=== PATIENT | female | born 1935 | race Caucasian/White ===

== ENCOUNTER 2019-05-16 16:33 | Observation (INO) | payer MEDICARE, SELFPAY ==
[2019-05-16] VITALS (11 sets, daily range): BP systolic 137–167; BP diastolic 63–82; PULSE 63–86; RESP 12–20; TEMP 37.6–38.1; O2SAT 92–100
--- NOTE | ~2019-05-16 | XR_ITS ---
EXAMINATION: XR chest 2V DATE: 05/16/2019 19:12 INDICATION: Asthma presenting with shortness of breath, cough and fever. TECHNIQUE: frontal and lateral views of the chest were obtained. COMPARISON: Chest radiograph dated 01/11/2019 FINDINGS: Minimal blunting at the posterior sulci which could represent mild atelectasis and/or tiny bilateral pleural effusions. Normal variant azygos lobe and fissure. Lungs are otherwise clear with no pulmonar y edema or pneumothorax. Cardiomegaly. Unchanged cardiac pacemaker with 2 leads projecting over the e xpected locations of the apex of the right ventricle and overlying the left ventricle likely having t raversed the coronary sinus. Left rotator cuff arthropathy. Moderate thoracic spondylosis. IMPRESSION: 1. Minimal atelectasis and/or tiny pleural effusions at the bilateral posterior sulci. 2. Cardiomegaly. Reviewed, dictated and finalized at location A. NG CATCHER
--- NOTE | 2019-05-16 19:15 | ED.URI ---
HPI - URI/Sore Throat General Chief Complaint: Upper Respiratory Infection Stated Complaint: trying to find placement Time Seen by Provider: 05/16/19 18:39 Source: patient, family (pt's daughter) and RN notes reviewed Mode of arrival: ambulatory Limitations: no limitations History of Present Illness HPI Narrative: Pt is a 84 y/o female with a Hx of COPD, asthma, and pneumonia, who presents to the ED with c/o flu-like symptoms starting several days ago. She notes that she was recently placed in [facility] following an ankle fracture. Pt states that she developed chills 3 days ago and worsening SOB 2 days ago. She notes that she is struggling to take a deep breath due to her chest being congested. Pt also reports chest heaviness, cough, and body aches. She notes that she became nauseas and had one episode of emesis earlier today. Pt's daughter states that the pt has been recently confused, noting that she has been saying strange things. She states that she is unhappy with the rehabilitation facility that her mother is currently at. MD elicited complaint: other (Flu-like symptoms) Pertinent past history: pneumonia, COPD and asthma Onset (ago): day(s) (3) Associated symptoms: chills, cough, shortness of breath, nausea, vomiting and other (chest congestion; chest heaviness; body aches; confusion (per daughter)) Related Data Home Medications Medication Instructions Recorded Confirmed albuterol sulfate 90 mcg/actuation 1 puff INHALATION Q4H PRN 03/05/19 05/17/19 aerosol inhaler atorvastatin 20 mg tablet 20 mg PO HS 03/05/19 05/17/19 bumetanide 1 mg tablet 1 mg PO DAILY 03/05/19 05/17/19 calcium carbonate 600 mg calcium 600 mg PO DAILY 03/05/19 05/17/19 (1,500 mg) tablet omega-3 fatty acids 1,000 mg 1,000 mg PO BID 03/05/19 05/17/19 capsule metformin 500 mg PO BID 03/13/19 05/17/19 potassium chloride [K-Tab] 20 meq PO DAILY 03/13/19 05/17/19 cholecalciferol (vitamin D3) 25 25 mcg PO DAILY 05/02/19 05/17/19 mcg (1,000 unit) capsule nystatin 100,000 unit/gram topical 1 applic TOPICAL BID 05/02/19 05/17/19 cream acetaminophen 650 mg PO Q4-6H PRN 05/17/19 05/17/19 fluticasone propion-salmeterol 1 puff INHALATION Q12H 05/17/19 05/17/19 [Advair Diskus] fluticasone propionate [Flonase 1 spray INTRANASAL BID PRN 05/17/19 05/17/19 Allergy Relief] polysaccharide iron complex 150 mg PO BID 05/17/19 05/17/19 Allergies Allergy/AdvReac Type Severity Reaction Status Date / Time aspirin Allergy Unknown Unknown Verified 05/02/19 10:35 codeine Allergy Unknown Unknown Verified 05/02/19 10:35 Review of Systems Review of Systems: All systems reviewed & are unremarkable except as noted in HPI and below Constitutional: Constitutional: Reports body ache(s) and Reports chills Cardiovascular: Cardiovascular: Reports other (chest heaviness) Respiratory: Respiratory: Reports chest congestion, Reports cough and Reports dyspnea Gastrointestinal: Gastrointestinal: Reports nausea and Reports vomiting Neurologic: Reports confusion (per daughter) [facility] Past Medical History Medical History Afib Arthritis Asthma Cardiac arrhythmia Cataracts, bilateral COPD (chronic obstructive pulmonary disease) DDD (degenerative disc disease) Diabetes mellitus Dyslipidemia Glaucoma Hypertension Pacemaker Pneumonia Polio Rheumatic fever Right arm weakness Stroke Tumor of ovary Surgical History Surgical History History of atrioventricular bala ablation History of cataract surgery History of total bilateral knee replacement Hx of tonsillectomy Social History Social History Social History: Patient lives at home alone and is retired. She designates her youngest daughter Ayanna Centeno as her surrogate decision maker. Her PCP is Dr. Foster. She wishes to be a full code but would not lik
[2019-05-16] MEDS: IPRATROPIUM BR 0.02% INH SOLN 0.5 MG/2.5 ML VIAL INHALATION (19:29)
[2019-05-16] MEDS: ALBUTEROL SULFATE NEB 2.5 MG/0.5 ML INH 5 MG INHALATION (19:29)
--- NOTE | 2019-05-16 19:34 | PC.NURSE ---
pt to bathroom per jay woodruff rn assisted to toilet. pt attempted sample, but sample was compromised. will attempt again later.
[2019-05-16 19:50] LABS: Basophils Percent Auto 0.6 % (0.2-1.2); Hematocrit 37.5 % (37.0-47.0); Hemoglobin 11.8 g/dL (12.0-15.0); Immature Granulocyte Absolute 0.01 K/mm3 (0.00-0.031); Immature Granulocyte Percent A 0.2 % (0-0.5); Lymphocytes Absolute Auto 0.67 K/mm3 (0.9-3.2); Lymphocytes Percent Auto 14.2 % (18.3-44.2); Mean Corpuscular HGB Conc 31.5 g/dl (32-36); Mean Corpuscular Hemoglobin 26.9 pg (26-34); Mean Corpuscular Volume 85.6 fl (80-100); Mean Platelet Volume 12.8 fl (7.4-10.4); Monocytes Absolute Auto 0.5 K/mm3 (0.1-0.6); Monocytes Percent Auto 10.6 % (2.6-8.5); Neutrophils Absolute Auto 3.5 K/mm3 (1.3-6.7); Neutrophils Percent Auto 74.4 % (45.5-73.1); Platelet Count Result 152 k/mm3 (150-375); Red Blood Count 4.38 M/mm3 (4.2-5.4); Red Cell Distribution Width 13.6 % (11.5-14.5); White Blood Count 4.7 K/mm3 (4.5-10.0)
[2019-05-16] MEDS: methylPREDNISolone SOD SUCC 125 MG VIAL IV PUSH (20:43)
[2019-05-16] MEDS: IPRATROPIUM BR 0.02% INH SOLN 0.5 MG/2.5 ML VIAL 1 MG INHALATION (20:44)
[2019-05-16] MEDS: ALBUTEROL SULFATE NEB 2.5 MG/0.5 ML INH 15 MG INHALATION (20:44)
[2019-05-16 20:49] LABS: Blood Urea Nitrogen 18 mg/dL (7-17); Calcium 8.9 mg/dL (8.4-10.2); Carbon Dioxide 30 mmol/L (22-30); Chloride 94 mmol/L (98-107); Estimated CRCL calculation 53 ml/min; Estimated Glomerular Filt Rate > 60; Glucose 105 mg/dL (65-105); Potassium 3.7 mmol/L (3.4-5.0); Sodium 135 mmol/L (137-145)
--- NOTE | 2019-05-16 21:04 | PC.NURSE ---
Spoke with zara genao about update on pt temp of 100.5. ZARA Genao states verbal order for [facility] IVP stat.
[2019-05-16 21:06] LABS: Color Urine Light Yellow (Yellow)
[2019-05-16 21:07] LABS: Appearance Urine Clear (Clear)
[2019-05-16 21:08] LABS: Glucose Urine UA Negative (Negative); Ketones Urine Negative (Negative); Protein Urine Trace mg/dL (Negative); Specific Grav Ur 1.025 (1.001-1.035)
[2019-05-16 21:09] LABS: Bilirubin Urine Negative (Negative); Blood Urine Trace (Negative); Nitrate Urine Negative (Negative); Urobilinogen Urine Normal mg/dL (<2.0)
[2019-05-16 21:10] LABS: Add Urine Microscopic? YES; Leukocyte Esterase Ur Negative LEU/UL (Negative)
[2019-05-16 21:11] LABS: RBC Urine 0-2 /hpf (0-2); WBC Urine 0-3 /hpf (0-3)
[2019-05-16 21:12] LABS: Bacteria Urine Trace /hpf; Squamous Epithelial Cell Urine Few /hpf (Few)
--- NOTE | 2019-05-16 23:49 | PC.NURSE ---
This patient, Marcia Barroso, was admitted to 2 Medical Room 258-. Patient/family oriented to hospital policies and general routines including ID bracelet, bed and alarms, visiting hours, pain management, procedures, bathroom and other care routines, personal items, smoking policy, room service/diet, and visiting hours. Valuables list has been completed. Information on how to activate the Rapid Response Team has been discussed. Patient/Family are encouraged to report perceived risks to care and to ask questions if they do not understand what they are told or what they should do.
[2019-05-17] VITALS (16 sets, daily range): BP systolic 131–143; BP diastolic 53–67; PULSE 64–80; RESP 16–20; TEMP 35.9–36.4; O2SAT 94–98; BMI 35.2
--- NOTE | 2019-05-17 00:07 | PM.IMHP ---
H&P: HPI History of Present Illness Chief complaint: Unhappy with rehab, shortness of breath Narrative: Date and time of patient contact: 05/17/2019 at 3:45 a.m. Marcia Barroso is a 84 year old female with a past medical history of COPD, allergic rhinitis, and diabetes who presented to the ER from [facility] due to flu-like symptoms and shortness of breath for couple of days. The patient developed chills 3 days ago. She has been having increasing shortness of breath for 2 days. She has had some nasal congestion, chest having heaviness, cough that is intermittently productive and abdominal and chest pain with coughing. Her family is frustrated that she has had to ask for breathing treatments at the rehab facility. The patient reports that she was receiving a breathing treatment and the medication dispenser fell off of the face mask. She called the rehab staff numerous times and they did not come back and the reattached the nebulizer until the medication was gone. She then stated that it took hours before they would give her another breathing treatment. The patient had 1 episode of vomiting today but has had some nausea off and on. Per the family the patient has been confused recently and been saying some strange things. However the patient was alert and oriented time of my evaluation. The patient denied having any fevers but was noted to have a temperature of 100.5? in the ER. Influenza screen performed in the ER was negative. The patient reports a sore and her left nostril that is now resolved. She also has had a sore on her left cheek that she thought was due to her dentures. A daughter is very upset with the patient's current rehab placement and once the patient placed in the hospital insulin new rehab facilities available. Review of Systems Review of Systems: Narrative: Except as documented in the HPI, all other systems were reviewed and are negative. [facility] Past Medical History Medical History (Updated 05/17/19 @ 07:20 by Tere Higginbotham DO) Arthritis Asthma COPD (chronic obstructive pulmonary disease) CVA (cerebral vascular accident) DDD (degenerative disc disease) Diabetes mellitus Diastolic dysfunction Dyslipidemia Glaucoma Hypertension LBBB (left bundle branch block) Obesity (BMI 30.0-34.9) Osteopenia after menopause Bilateral femoral neck osteopenia noted on DEXA scan May 2018 Pacemaker Paroxysmal atrial fibrillation With synchronized cardioversion February 2018 with subsequent recurrence of atrial fibrillation with polymorphic tachyarrhythmias requiring pacemaker placement and AV bala ablation at [facility] Pneumonia Polio With residual right arm weakness Rheumatic fever With history of moderate to severe tricuspid valve regurgitation and moderate mitral valve regurgitation (2017) with improved bowel function mild regurgitation of both valves on last echo September 2018 Right arm weakness 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% noted on echocardiogram from February 2018 with moderate to severe mitral and tricuspid regurgitation with improvement of her ejection fraction after AV bala ablation with echocardiogram September 2018 demonstrating EF of 55% with diastolic dysfunction Surgical History Surgical History (Updated 05/17/19 @ 00:34 by Tere Higginbotham DO) History of atrioventricular bala ablation History of bilateral cataract extraction History of total bilateral knee replacement Hx of tonsillectomy Presence of biventricular cardiac pacemaker Placed February 2018 at the same time as AV bala ablation Status post ORIF of fracture of ankle Left closed displaced trimalleolar fracture March 2019 Tumor of ovary Status post resection Family History Family History (Updated 05/17/19 @ 00:37 by Tere Higginbotham DO) Father Alzheimer's dementia Mother , Heart failure. Hypertension Ovarian cancer CHF (congestive heart fail
[2019-05-17] MEDS: carvediloL 3.125 MG TABLET PO ×3 (00:59→20:21)
[2019-05-17] MEDS: IPRATROPIUM BR 0.02% INH SOLN 0.5 MG/2.5 ML VIAL INHALATION ×4 (03:28→19:49)
[2019-05-17] MEDS: ALBUTEROL SULFATE NEB 2.5 MG/0.5 ML INH 5 MG INHALATION ×4 (03:28→19:49)
[2019-05-17] MEDS: OMEGA 3 POLYUNSAT FATTY ACIDS 1 GM CAP PO ×2 (08:43→19:27)
[2019-05-17] MEDS: CALCIUM CARBONATE (OSCAL) 500 MG TABLET PO (08:43)
[2019-05-17] MEDS: predniSONE 20 MG TABLET 60 MG PO (08:43)
[2019-05-17] MEDS: LOSARTAN POTASSIUM 25 MG TABLET PO (08:43)
[2019-05-17] MEDS: POLYSACCHARIDE IRON COMPLEX 150 MG CAPSULE PO ×2 (08:43→19:27)
[2019-05-17] MEDS: POTASSIUM CHLORIDE 20 MEQ TABLET.ER PO (08:43)
[2019-05-17] MEDS: metFORMIN HCL 500 MG TABLET PO ×2 (08:43→19:28)
[2019-05-17] MEDS: APIXABAN 5 MG TABLET PO ×2 (08:43→19:27)
[2019-05-17] MEDS: BUMETANIDE 1 MG TABLET PO (08:43)
[2019-05-17] MEDS: MICONAZOLE NITRATE 2% CREAM 30 GM TUBE 1 APPLIC TOPICAL ×2 (08:43→19:28)
[2019-05-17 08:56] LABS: Glucose Point of Care 270 (65-105)
[2019-05-17] MEDS: INSULIN ASPART (*BKC) 100 UNITS/ML SUB-Q (08:56)
[2019-05-17 13:42] LABS: Glucose Point of Care 180 (65-105)
--- NOTE | 2019-05-17 15:39 | PM.IMPN ---
Progress Note: A&P Assessment and Plan (1) COPD exacerbation: Code(s): J44.1 - Chronic obstructive pulmonary disease with (acute) exacerbation Status: Acute Assessment and Plan: ------improving on current therapy. Will continue breathing treatments and prednisone p.o.. No antibiotics indicated at this time since the patient is improving and chest x-ray looks okay. Likely due to viral illness. She has not been requiring oxygen. Likely discharge tomorrow. . (2) Diabetes mellitus: Code(s): E11.9 - Type 2 diabetes mellitus without complications Status: Acute Assessment and Plan: ------metformin and SSI since patient is receiving steroids. continue Accu-Cheks (3) Atrial fibrillation: Code(s): I48.91 - Unspecified atrial fibrillation Status: Acute Assessment and Plan: -----patient does have a pacemaker for this reason. She sees her cardiology regularly and has a past history of cardiovascular disease. continue Eliquis Time Spent With Patient Time with patient: 25 - 35 minutes Subjective Date/time seen: 05/17/19 15:39 Interval history: Pt is a 84-year-old female here for COPD exacerbation. Patient was seen today and states that her breathing is much better than it was outpatient. She still has a significant cough and having some shortness of breath but overall feels much better. She has had 3 episodes liquid diarrhea today which is new. Pt denies nausea, vomiting, fevers, chills, chest pain, or abdominal pain. Review of Systems Review of Systems: All systems reviewed & are unremarkable except as noted in HPI and below Exam Narrative: Exam Narrative: General: Well developed well nourished patient resting comfortably in bed in NAD HEENT: normocephalic Neck: supple Neuro: Alert and oriented x 4. CV:RRR Resp: Pretty clear to auscultation with occasional expiratory wheeze Abd: Soft, non distended. No pain to palpation. Positive bowel sounds Extremities: No swelling, erythema, or pain to palpation. Objective Data Vital Signs Vital Signs: Vital Signs - 24 hr 05/16/19 16:51 05/16/19 18:39 05/16/19 19:36 Temperature 100.5 F H Pulse Rate 75 84 Respiratory Rate 20 18 Blood Pressure 145/63 H Pulse Oximetry 95 98 05/16/19 19:45 05/16/19 19:48 05/16/19 20:46 Temperature Pulse Rate 72 71 86 Respiratory Rate 18 18 20 Blood Pressure 167/73 H Pulse Oximetry 100 05/16/19 20:59 05/16/19 21:35 05/16/19 22:18 Temperature 100.5 F H 99.7 F H Pulse Rate 63 69 Respiratory Rate 18 20 Blood Pressure 164/82 H Pulse Oximetry 99 05/16/19 23:00 05/16/19 23:27 05/17/19 00:00 Temperature 96.6 F L Pulse Rate 70 71 68 Respiratory Rate 18 12 16 Blood Pressure 137/63 137/63 143/60 H Pulse Oximetry 92 94 94 05/17/19 00:59 05/17/19 03:32 05/17/19 03:38 Temperature Pulse Rate 68 78 76 Respiratory Rate 20 20 Blood Pressure Pulse Oximetry 05/17/19 06:00 05/17/19 08:41 05/17/19 10:06 Temperature 97.4 F L Pulse Rate 69 64 71 Respiratory Rate 16 18 Blood Pressure 131/53 L Pulse Oximetry 98 05/17/19 10:14 05/17/19 14:00 Temperature 96.9 F L Pulse Rate 77 77 Respiratory Rate 20 18 Blood Pressure 143/67 H Pulse Oximetry 98 Intake/Output Intake/Output: Intake & Output 05/14/19 05/15/19 05/16/19 05/17/19 23:59 23:59 23:59 23:59 Intake Total 100 1060 Output Total 200 Balance 100 860 Meds/Results Medications: Active Medications Generic Name Dose Route Start Last Admin Trade Name Sarah PRN Reason Stop Dose Admin Acetaminophen 650 mg 05/16/19 22:49 Tylenol Tablet PO Q4H PRN Mild Pain (1-3) or Fever Hydrocodone Bitart/Acetaminophen 1 tab 05/16/19 22:49 05/17/19 14:23 [place] 5-325 Mg PO 1 tab Q4H PRN Administration Pain Rated 4-6 Albuterol 5 mg 05/17/19 02:00 05/17/19 10:03 Albuterol Sulf Neb 2.5mg/0.5ml INHALATION 5 mg Q
[2019-05-17 17:14] LABS: Glucose Point of Care 158 (65-105)
[2019-05-17] MEDS: ATORVASTATIN 20 MG TABLET PO (20:21)
[2019-05-17 20:28] LABS: Glucose Point of Care 207 (65-105)
[2019-05-18] MEDS: IPRATROPIUM BR 0.02% INH SOLN 0.5 MG/2.5 ML VIAL INHALATION ×2 (02:01→10:09)
[2019-05-18] MEDS: ALBUTEROL SULFATE NEB 2.5 MG/0.5 ML INH 5 MG INHALATION ×2 (02:01→10:09)
[2019-05-18 02:02] VITALS: PULSE 70; RESP 18
[2019-05-18 02:08] VITALS: PULSE 68; RESP 18
[2019-05-18 06:00] VITALS: BP 132/58; PULSE 76; RESP 16; TEMP 36.2; O2SAT 96
[2019-05-18 07:26] LABS: Glucose Point of Care 108 (65-105)
[2019-05-18 08:02] VITALS: PULSE 76
[2019-05-18] MEDS: metFORMIN HCL 500 MG TABLET PO (08:02)
[2019-05-18] MEDS: OMEGA 3 POLYUNSAT FATTY ACIDS 1 GM CAP PO (08:02)
[2019-05-18] MEDS: BUMETANIDE 1 MG TABLET PO (08:02)
[2019-05-18] MEDS: LOSARTAN POTASSIUM 25 MG TABLET PO (08:02)
[2019-05-18] MEDS: POLYSACCHARIDE IRON COMPLEX 150 MG CAPSULE PO (08:02)
[2019-05-18] MEDS: carvediloL 3.125 MG TABLET PO (08:02)
[2019-05-18] MEDS: APIXABAN 5 MG TABLET PO (08:03)
[2019-05-18] MEDS: MICONAZOLE NITRATE 2% CREAM 30 GM TUBE 1 APPLIC TOPICAL (08:03)
[2019-05-18] MEDS: CALCIUM CARBONATE (OSCAL) 500 MG TABLET PO (08:03)
[2019-05-18] MEDS: POTASSIUM CHLORIDE 20 MEQ TABLET.ER PO (08:03)
[2019-05-18] MEDS: predniSONE 20 MG TABLET 60 MG PO (08:03)
[2019-05-18] MEDS: FLUTICASONE PROPIONATE 0.05% NA SPR 16 GM BTL (*BKC) 1 SPRAY NASAL (08:04)
[2019-05-18 10:09] VITALS: PULSE 86; RESP 20
[2019-05-18 10:16] VITALS: PULSE 80; RESP 20
[2019-05-18 11:42] LABS: Glucose Point of Care 82 (65-105)
--- NOTE | 2019-05-18 12:25 | PM.DS ---
DS: Diagnosis Admitting Diagnosis Admitting Diagnosis: Chronic obstructive pulmonary disease with (acute) exacerbation Discharge Diagnosis (1) COPD exacerbation: Code(s): J44.1 - Chronic obstructive pulmonary disease with (acute) exacerbation Status: Acute Assessment and Plan: ------improved on oral steroids. No indication of PNA at this time so no abx were given. Order given so pt could continue breathing treatments as needed at the facility. Likely due to viral illness. She has not been requiring oxygen. . (2) Diabetes mellitus: Code(s): E11.9 - Type 2 diabetes mellitus without complications Status: Acute Assessment and Plan: ------last glucose 82. Continue home meds (3) Atrial fibrillation: Code(s): I48.91 - Unspecified atrial fibrillation Status: Acute Assessment and Plan: -----patient does have a pacemaker for this reason. She sees her cardiology regularly and has a past history of cardiovascular disease. continue Eliquis DS: Summary Hospital Course Reason for hospitalization: Shortness of breath COPD exacerbation Hospital Course: Patient is 89-year-old female who presented emergency room for flu-like symptoms and shortness of breath. Temperature in the ER was 100.5, pulse 75, respiratory rate 20, blood pressure 145/63, pulse ox 95 on room air. White blood cell count normal. Flu screen negative. Chest x-ray showed minimal atelectasis and/or tiny pleural effusions bilaterally and cardiomegaly. Patient was given breathing treatments and started on p.o. steroids and admitted to the hospitalist service where she did not have any further complications. She did think the breathing treatments helped so she was discharged on albuterol medications for breathing treatments at the facility. Overall, the patient improved and there was no evidence of bacterial pneumonia and she was discharged on prednisone. She was educated about the worrisome signs and symptoms come back to emergency room for and was discharged stable condition. Status at Discharge Overall status at discharge: patient is back to baseline Time Spent with Patient Time attestation: Total time spent providing and/or coordinating discharge services: 34 minutes Time spent: Greater than 30 minutes Exam Narrative: Exam Narrative: General: Well developed well nourished patient resting comfortably in bed in NAD HEENT: normocephalic Neck: supple Neuro: Alert and oriented x 4. CV:RRR Resp: Pretty clear to auscultation with occasional expiratory wheeze Abd: Soft, non distended. No pain to palpation. Positive bowel sounds Extremities: Cast to the left leg. Trace pitting edema to the right. DS: Data Data Completed and Pending Labs on day of discharge: Labs from last 24 hours 05/18/19 05/18/19 05/17/19 11:39 07:22 20:19 POC Capillary Glucose 82 108 207 H 05/17/19 05/17/19 17:11 13:35 POC Capillary Glucose 158 H 180 H Preliminary micro results at discharge 05/17/19 00:31 MRSA Culture - Preliminary Nasopharynx Discharge Plan Discharge Attending physician on discharge: Whitley Peterson Discharging Clinician: Erica Hannah Patient Disposition: SNF Activity: follow weight bearing status Diet: diabetic Discharge Instructions: -Please note your medications may have changed. Take all of your steroids as prescribed -toe touch/ Non weight bearing on the left leg. Follow up with Dr. Nayak as scheduled -As discussed, your cough and wheezing appears to be from a viral illness. There is no pneumonia on the chest xray. If your symptoms worsen, contact the facility doctor. -Signs and symptoms of low blood sugar include: Shakiness, dizziness, nausea, confusion, sweating, stomach aches and dizziness. If the symptoms occur you need to check your blood sugar. If it is less than 70, drink some juice with sugar in it or eat some sugary candy. Recheck in 2
== END 2019-05-18 13:46 ==
LOC: ANHED 22:04 → ANH2MED 22:58
PROVIDERS: Physician Assistant; Admitting Provider Internal Medicine; Emergency Provider Emergency Medicine; PCP Internal Medicine; Visit Provider Family Medicine
DX: J44.1 Chronic obstructive pulmonary disease with (acute) exacerbation (principal); J45.901 Unspecified asthma with (acute) exacerbation; I48.0 Paroxysmal atrial fibrillation; I10 Essential (primary) hypertension; I08.1 Rheumatic disorders of both mitral and tricuspid valves; E11.9 Type 2 diabetes mellitus without complications; E78.5 Hyperlipidemia, unspecified; E66.9 Obesity, unspecified; Z68.35 Body mass index [BMI] 35.0-35.9, adult; R29.898 Other symptoms and signs involving the musculoskeletal system; B91 Sequelae of poliomyelitis; Z79.01 Long term (current) use of anticoagulants; Z79.84 Long term (current) use of oral hypoglycemic drugs; Z79.899 Other long term (current) drug therapy; Z86.73 Personal history of transient ischemic attack (TIA), and cerebral infarction without residual deficits; Z95.0 Presence of cardiac pacemaker; Z96.653 Presence of artificial knee joint, bilateral
CPT/HCPCS: 36415; 71046; 80048; 81001; 85025; 87081; 87804; 94640; 96374; 96375; 97161; 97165; 99285; A9270; G0378; J0131; J1815; J2930; J7512

== ENCOUNTER 2019-12-06 14:32 | Observation (INO) | payer MEDICARE, SELFPAY ==
[2019-12-06] VITALS (12 sets, daily range): BP systolic 69–135; BP diastolic 32–86; PULSE 65–84; RESP 12–18; TEMP 36.3–36.7; O2SAT 96–100; BMI 32.7
--- NOTE | ~2019-12-06 | CT_ITS ---
EXAMINATION: CT facial bones wo con DATE: 12/06/2019 15:27 INDICATION: Status post fall. Facial pain. TECHNIQUE: Computed tomography (CT) of the maxillofacial bones was performed without intravenous cont rast. The dose-length product was 256.43 mGy-cm. Automated exposure control and iterative reconstruct ion technique were employed. COMPARISON: None FINDINGS: There are multiple fractures of the nasal bone without significant displacement. Zygomatic arch is intact. There is mucosal thickening of the ethmoid sinus. Small air-fluid level right maxilla ry sinus. No evidence for orbital blowout fracture. Temporal mandibular joints are symmetric. There i s subcutaneous gas overlying the frontal bone and nasal bones. Mild soft tissue swelling. No mandibul ar fracture. Pterygoid plates intact. IMPRESSION: 1. Minimally displaced nasal fractures. Reviewed, dictated and finalized at location A.
--- NOTE | ~2019-12-06 | XR_ITS ---
XR forearm RT 2V 12/06/2019 15:09 INDICATION: Right arm pain after fall PROCEDURE: 2 views right forearm COMPARISON: No prior studies for comparison. FINDINGS: Fracture, dislocation or subluxation is not identified. There is moderate soft tissue swell ing dorsal to the distal forearm. No foreign bodies are identified. IMPRESSION: 1: NO ACUTE BONE OR JOINT ABNORMALITY IDENTIFIED. Reviewed, dictated and finalized at location A.
--- NOTE | ~2019-12-06 | XR_ITS ---
XR chest 1V portable 12/06/2019 15:08 Indication: Status post fall. Chest pain. Procedure: AP portable chest Comparison: 05/16/2019 Findings: Borderline heart size. Pacemaker leads in expected position. No focal air space disease, pu lmonary edema, pleural effusion or suspected pneumothorax. The lungs are hyperinflated which is consi stent with, but not diagnostic of chronic obstructive pulmonary disease. There are advanced degenerat rut changes of the left shoulder. Impression: 1: No acute cardiopulmonary disease. Reviewed, dictated and finalized at location A. Impression: 1: No acute cardiopulmonary disease.
--- NOTE | ~2019-12-06 | CT_ITS ---
EXAMINATION: CT abdomen pelvis w con DATE: 12/06/2019 18:25 INDICATION: Left upper quadrant abdominal pain TECHNIQUE: Computed tomography (CT) of the abdomen and pelvis was performed with 100 cc Omnipaque 350 intravenous contrast. The dose-length product was 1073.16 mGy-cm. Automated exposure control and ite rative reconstruction technique were employed. COMPARISON: None. FINDINGS: Cardiomegaly. Moderate pericardial effusion. There is atherosclerosis. Lung bases unremarka ble. No significant pleural effusion. The liver, spleen, pancreas, adrenal glands and left kidney are unremarkable. There is a small subcen timeter hypodensity of the right kidney, too small to characterize, although likely benign. Gallbladd er is present. Nonobstructive bowel gas pattern. No significant vascular abnormality. No lymphadenopa thy. Moderate-severe lumbar spondylosis. There is diffuse subcutaneous edema of the right gluteal reg ion with associated soft tissue collection measuring 7.7 x 3 cm IMPRESSION: 1. Cardiomegaly with moderate pericardial effusion. 2: Moderate subcutaneous edema with focal soft tissue mass in the right gluteal region just lateral t o the greater trochanter which may represent hematoma or infectious/inflammatory change. No discrete walled off abscess identified. Correlate for history of recent trauma. Reviewed, dictated and finalized at location A. IMPRESSION: 1. Cardiomegaly with moderate pericardial effusion. 2: Moderate subcutaneous edema with focal soft tissue mass in the right gluteal region just lateral to the greater trochanter which may represent hematoma or infectious/inflammatory change. No discrete walled off abscess identified. Chana elate for history of recent trauma.
--- NOTE | ~2019-12-06 | CT_ITS ---
EXAMINATION: CT brain wo con DATE: 12/06/2019 15:28 INDICATION: Status post fall. TECHNIQUE: Computed tomography (CT) of the head was performed without intravenous contrast. The dose- length product was 529.67 mGy-cm. The mA was adjusted according to patient size. Iterative reconstruc tion technique was employed. COMPARISON: None FINDINGS: There are bilateral lacunar infarctions, likely chronic. Mild generalized atrophy. There ar e scattered moderate periventricular and subcortical white matter changes, most likely related to sma ll vessel ischemic disease (microangiopathy). No ventriculomegaly or midline shift. No acute intracra nial hemorrhage, infarction, mass or mass effect. IMPRESSION: 1. No acute intracranial abnormality. 2: Bilateral lacunar infarctions, likely chronic. 3: Chronic age-related findings. Reviewed, dictated and finalized at location A.
--- NOTE | ~2019-12-06 | CT_ITS ---
EXAMINATION: CT brain wo con DATE: 12/07/2019 10:37 INDICATION: Weakness. Period of unresponsiveness. TECHNIQUE: Computed tomography (CT) of the head was performed without intravenous contrast. Sagittal and coronal reconstructions were performed. The mA was adjusted according to patient size. Iterative reconstruction technique was employed. The dose-length product was 605.33 mGy-cm. COMPARISON: head CT dated 12/06/2019 FINDINGS: No acute intracranial hemorrhage, acute infarction or abnormal extra axial fluid collection. Small ol d lacunar infarcts in the left thalamus and right basal ganglia. There is moderate scattered white ma tter hypoattenuation consistent with chronic small vessel ischemic disease. Symmetric prominence of t he sulci consistent with mild age-appropriate diffuse cerebral volume loss. Ventricles are normal and symmetric. No mass/mass effect. Intracranial calcified cerebral atherosclerosis is noted. Changes of bilateral intraocular lens replacement. The orbits and mastoid air cells are normal. Small amount of fluid layering posteriorly in the right sphenoid sinus. IMPRESSION: 1. No acute intracranial process. 2. Small old lacunar infarcts at the left thalamus and right basal ganglia. 3. Age-related changes including mild diffuse volume loss and moderate scattered white matter hypoatt enuation consistent with chronic small vessel ischemic disease. Reviewed, dictated and finalized at location A. IMPRESSION: 1. No acute intracranial process. 2. Small old lacunar infarcts at the left thalamus and right basal ganglia. 3. Age-related changes including mild diffuse volume loss and moderate scattere d white matter hypoattenuation consistent with chronic small vessel ischemic di sease.
--- NOTE | 2019-12-06 14:39 | ECG_ITS ---
Measurements Intervals [place] Rate: 69 P: NV: 0 QRS: 238 QRSD: 127 T: 87 QT: 448 QTc: 483 Interpretive Statements ELECTRONIC VENTRICULAR PACEMAKER BASELINE ARTIFACT- I, II, III AVR, AVL, AVF, V1-V6 NO FURTHER INTERPRETATION IS POSSIBLE ATYPICAL ECG Electronically Signed On 12-06-2019 15:01:41 CDT by Osmel Vogt D.O.
--- NOTE | 2019-12-06 14:52 | ED.SYNCOPE ---
HPI - Syncope General Chief Complaint: Syncope <Hoang Loyola DO - Last Filed: 12/06/19 18:52> Stated Complaint: Syncopal <Hoang Loyola DO - Last Filed: 12/06/19 18:52> Time Seen by Provider: 12/06/19 14:35 <Hoang Loyola DO - Last Filed: 12/06/19 18:52> Source: RN notes reviewed <Hoang Loyola DO - Last Filed: 12/06/19 18:52> History of Present Illness HPI narrative: Patient presents emergency department from home for syncopal episode. Patient states that she was standing in her kitchen getting ready to take her medication when she began to feel dizzy and then awoke on the floor. She does not recall what happened. Patient currently has some bruising laceration to the nose as well as bruising of the right arm and the buttocks. States she is on blood thinners and has a history of pacemaker placement. She denied having any recent illness. She denies any fevers or chills chest pain shortness of breath abdominal pain nausea vomiting or any other symptoms <Hoang Loyola DO - Last Filed: 12/06/19 18:52> Related Data Home Medications: Home Medications Medication Instructions Recorded Confirmed albuterol sulfate 90 mcg/actuation 1 puff INHALATION Q4H PRN 03/05/19 10/08/19 aerosol inhaler omega-3 fatty acids 1,000 mg 1,000 mg PO BID 03/05/19 10/08/19 capsule Hsbho-Bqk-Xaj-Riyez-Inzkj-unkr cap PO 10/16/19 cholecalciferol (vitamin D3) 25 25 mcg PO DAILY 10/16/19 mcg (1,000 unit) capsule <Hoang Loyola DO - Last Filed: 12/06/19 18:52> Allergies/Adverse Reactions: Allergies Allergy/AdvReac Type Severity Reaction Status Date / Time aspirin Allergy Unknown Vomiting Verified 12/06/19 14:37 codeine Allergy Unknown tachycardia Verified 12/06/19 14:37 <Hoang Loyola DO - Last Filed: 12/06/19 18:52> Review of Systems Review of Systems: Narrative: Gen.: Denies fevers or chills Eyes: Denies eye pain or visual change ENT: Reports facial pain Respiratory: Denies shortness of breath or cough CV: Syncope GI: Denies abdominal pain nausea, emesis or diarrhea Musculoskeletal: Denies back pain or muscle pain Neuro: Denies numbness, tingling, weakness or focal weakness Skin: Denies rash Except as documented, all other systems reviewed and negative <Hoang Loyola DO - Last Filed: 12/06/19 18:52> [facility] Past Medical History Medical History: Medical History Arthritis Asthma Atrial fibrillation Broken ankle COPD (chronic obstructive pulmonary disease) CVA (cerebral vascular accident) DDD (degenerative disc disease) Diabetes mellitus A1C=5.8=06/19/19 Diastolic dysfunction Dyslipidemia Glaucoma Hypertension LBBB (left bundle branch block) Obesity (BMI 30.0-34.9) Osteopenia after menopause Bilateral femoral neck osteopenia noted on DEXA scan May 2018 Pacemaker Paroxysmal atrial fibrillation With synchronized cardioversion February 2018 with subsequent recurrence of atrial fibrillation with polymorphic tachyarrhythmias requiring pacemaker placement and AV bala ablation at [facility] Pneumonia Polio With residual right arm weakness Rheumatic fever With history of moderate to severe tricuspid valve regurgitation and moderate mitral valve regurgitation (2017) with improved bowel function mild regurgitation of both valves on last echo September 2018 Right arm weakness 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
[2019-12-06 15:01] LABS: Basophils Percent Auto 0.5 % (0.2-1.2); Eosinophils Absolute Auto 0.1 K/mm3 (0-0.3); Eosinophils Percent Auto 0.8 % (0-4.4); Hematocrit 34.8 % (37.0-47.0); Hemoglobin 11.3 g/dL (12.0-15.0); Immature Granulocyte Absolute 0.03 K/mm3 (0.00-0.031); Immature Granulocyte Percent A 0.5 % (0-0.5); Lymphocytes Absolute Auto 1.06 K/mm3 (0.9-3.2); Lymphocytes Percent Auto 16.8 % (18.3-44.2); Mean Corpuscular HGB Conc 32.5 g/dl (32-36); Mean Corpuscular Hemoglobin 27.9 pg (26-34); Mean Corpuscular Volume 85.9 fl (80-100); Mean Platelet Volume 11.9 fl (7.4-10.4); Monocytes Absolute Auto 0.5 K/mm3 (0.1-0.6); Monocytes Percent Auto 7.1 % (2.6-8.5); Neutrophils Absolute Auto 4.7 K/mm3 (1.3-6.7); Neutrophils Percent Auto 74.3 % (45.5-73.1); Platelet Count Result 193 k/mm3 (150-375); Red Blood Count 4.05 M/mm3 (4.2-5.4); Red Cell Distribution Width 12.9 % (11.5-14.5); White Blood Count 6.3 K/mm3 (4.5-10.0)
--- NOTE | 2019-12-06 15:11 | PC.NURSE ---
pt noted to have some lethargy, low BP 69/32 asked for ED provider to come assess the pt, due to change in status orders received for 1L NS bolus
[2019-12-06 15:14] LABS: Anion Gap 6 mmol/L (8-16); Blood Urea Nitrogen 21 mg/dL (7-17); Calcium 9.3 mg/dL (8.4-10.2); Carbon Dioxide 30 mmol/L (22-30); Chloride 99 mmol/L (98-107); Estimated CRCL calculation 55 ml/min; Estimated Glomerular Filt Rate > 60; Glucose 143 mg/dL (65-105); Potassium 3.7 mmol/L (3.4-5.0); Sodium 135 mmol/L (137-145)
[2019-12-06 15:22] LABS: INR 1.5; Prothrombin Time 17.3 Seconds (11.1-14.7)
[2019-12-06 15:23] LABS: Partial Thromboplastin Time 47.6 SECONDS (22.3-36.8)
[2019-12-06] MEDS: SODIUM CHLORIDE 0.9% IV 1,000 ML 999 ML IV CONT (15:39)
[2019-12-06 16:30] LABS: Troponin I < 0.012 ng/mL (0.000-0.034)
[2019-12-06 16:57] LABS: Add Urine Microscopic? NO; Appearance Urine Clear (Clear); Bilirubin Urine Negative (Negative); Blood Urine Negative (Negative); Color Urine Straw (Yellow); Glucose Urine UA Negative (Negative); Ketones Urine Negative (Negative); Leukocyte Esterase Ur Negative LEU/UL (Negative); Nitrate Urine Negative (Negative); Protein Urine Negative (Negative); Urobilinogen Urine Negative mg/dL (<2.0)
[2019-12-06 17:46] LABS: Alanine Aminotransferase 36 U/L (4-35); Albumin Level 3.7 g/dL (3.5-5.1); Alkaline Phosphatase 64 U/L (38-126); Aspartate Amino Transferase 45 U/L (14-36); Bilirubin,Total 1.2 mg/dL (0.2-1.3)
--- NOTE | 2019-12-06 19:52 | ADMGEN ---
This patient, Marcia Barroso, was admitted to 3 Medical Room 345-. Patient/family oriented to hospital policies and general routines including ID bracelet, bed and alarms, visiting hours, pain management, procedures, bathroom and other care routines, personal items, smoking policy, room service/diet, and visiting hours. Valuables list has been completed. Information on how to activate the Rapid Response Team has been discussed. Patient/Family are encouraged to report perceived risks to care and to ask questions if they do not understand what they are told or what they should do.
[2019-12-06] MEDS: SODIUM CHLORIDE 0.9% IV 1,000 ML 80 ML IV CONT (20:14)
[2019-12-06 20:25] LABS: Troponin I 0.015 ng/mL (0.000-0.034)
[2019-12-06 20:31] LABS: Glucose Point of Care 95 (65-105)
[2019-12-07] VITALS (15 sets, daily range): BP systolic 90–180; BP diastolic 34–151; PULSE 57–74; RESP 16–94; TEMP 36.2–37; O2SAT 94–100
--- NOTE | 2019-12-07 02:17 | PM.IMHP ---
H&P: HPI History of Present Illness Date/Time: 12/07/19 02:17 Chief complaint: Orthostatic hypotension/syncope/nasal bone fractur Narrative: This is an 84 year old Diabetic female known to ambulate with a walker secondary to b/l lower extremity weakness and RUE weakness from having polio as a child who presented to the hospital yesterday with a complaint of syncope. The patient was standing in her kitchen and getting ready to take her medication when she began to feel dizzy and describes the room spinning around her. The next thing she knew she woke up on the floor in a puddle of blood. She denies any prodrome of chest pain or shortness of breath before passing out. She has passed out before but it has been many years. She luckily had her phone in her pocket and called her daughter as she was too weak to get up off the floor herself. She is known to be anticoagulated on Eliquis secondary to paroxysmal atrial fibrillation. The patient suffered facial trauma. She lives alone and remarks that the night before she also suffered a fall when she was weak and her legs gave out on her. She did not pass out at that time and simply went down to the ground. She ended up crawling to her love seat and sat on the ground for 3 hours before she finally got the strength to slowly get up. The patient was evaluated in the ER yesterday and facial CT demonstrated minimally displaced nasal fracture. She had 4 stiches placed on the bridge of her nose for a laceration. She currently has minimal facial pain but no other complaints. Currently she denies any other symptoms. Review of Systems Review of Systems: All systems reviewed & are unremarkable except as noted in HPI and below COUNT INCLUDES THE [facility] Past Medical History Medical History Arthritis Asthma Atrial fibrillation Broken ankle COPD (chronic obstructive pulmonary disease) CVA (cerebral vascular accident) DDD (degenerative disc disease) Diabetes mellitus A1C=5.8=06/19/19 Diastolic dysfunction Dyslipidemia Glaucoma Hypertension LBBB (left bundle branch block) Obesity (BMI 30.0-34.9) Osteopenia after menopause Bilateral femoral neck osteopenia noted on DEXA scan May 2018 Pacemaker Paroxysmal atrial fibrillation With synchronized cardioversion February 2018 with subsequent recurrence of atrial fibrillation with polymorphic tachyarrhythmias requiring pacemaker placement and AV bala ablation at [facility] Pneumonia Polio With residual right arm weakness Rheumatic fever With history of moderate to severe tricuspid valve regurgitation and moderate mitral valve regurgitation (2018) with improved bowel function mild regurgitation of both valves on last echo September 2018 Right arm weakness 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% noted on echocardiogram from February 2018 with moderate to severe mitral and tricuspid regurgitation with improvement of her ejection fraction after AV bala ablation with echocardiogram September 2018 demonstrating EF of 55% with diastolic dysfunction Trimalleolar fracture of left ankle Surgical History Surgical History History of atrioventricular bala ablation History of bilateral cataract extraction History of total bilateral knee replacement Hx of tonsillectomy Presence of biventricular cardiac pacemaker Placed February 2018 at the same time as AV bala ablation Tumor of ovary Status post resection Family History Family History Father No problems noted. Mother , Heart failure. Hypertension Ovarian cancer CHF (congestive heart failure) Sibling Diabetes mellitus Brother Breast cancer Sister Lung cancer Brother COPD (chronic obstructive pulmonary disease) Son Diabetes mellitus Social History Social History (Reviewed
--- NOTE | 2019-12-07 02:29 | ECHO_ITS ---
Patient Info Name: Marcia Barroso Age: 84 years : 1935 Gender: Female Ht: 64 in Wt: 190 lbs BSA: 2.01 m2 HR: 72 bpm BP: 104 / 46 mmHg Technical Quality: Good Exam Date: 12/07/2019 7:35 AM Exam Location: [facility] Pulmonary Exam Room: 345 Patient Status: Outpatient Admit Date: 12/06/2019 Staff Ordering Physician: Petr Jonas MD Halftone Operator: Jud Lunsford RDCS Attending Provider: Jean Escamilla MD Referring Physician: Pritesh MCMILLAN; Exam Type: CA echo doppler color flow Study Info Indications - MODERATYE PERICARDIAL EFFUSION SYNCOPE COLLASPE PPM Complete two-dimensional, color flow and Doppler transthoracic echocardiogram is performed. Summary 1. Complete two-dimensional, color flow and Doppler transthoracic echocardiogram is performed. 2. Left ventricular chamber dimension is normal. 3. Left ventricular systolic function is normal, estimated at 65-70%. 4. The left ventricular diastolic function is abnormal. 5. E/e' 13 is mildly elevated. 6. Linear artifact in right ventricle suggestive of catheter(s), pacemaker lead(s), or ICD lead(s). 7. Left atrial chamber dimension is severely enlarged. 8. Right atrial chamber dimension is moderately enlarged. 9. Linear artifact in the right atrium suggestive of catheter(s), pacemaker lead(s), or ICD lead(s). 10. The mitral valve has mildly calcified annulus. 11. No pulmonary hypertension, estimated pulmonary arterial systolic pressure is 34 mmHg. 12. There is moderate circumferential pericardial effusion. No cardiac tamponade with normal respiratory variation of TV and MV inflow velocity. Left Ventricle E/e' 13 is mildly elevated. Left ventricular chamber dimension is normal. Left ventricular systolic function is normal, estimated at 65-70%. The left ventricular diastolic function is abnormal. Right Ventricle Linear artifact in right ventricle suggestive of catheter(s), pacemaker lead(s), or ICD lead(s). Right ventricular chamber dimension is normal. Right ventricular systolic function is normal. Left Atria Left atrial chamber dimension is severely enlarged. Right Atria Linear artifact in the right atrium suggestive of catheter(s), pacemaker lead(s), or ICD lead(s). Right atrial chamber dimension is moderately enlarged. Aortic Valve The aortic valve is trileaflet. There is no aortic valve stenosis. There is no aortic valve regurgitation. Pulmonic Valve There is no pulmonic regurgitation. Mitral Valve The mitral valve has mildly calcified annulus. There is no mitral valve stenosis. There is no mitral valve regurgitation. Tricuspid Valve There is no tricuspid valve regurgitation. No pulmonary hypertension, estimated pulmonary arterial systolic pressure is 34 mmHg. Pericardium/Pleural There is moderate circumferential pericardial effusion. No cardiac tamponade with normal respiratory variation of TV and MV inflow velocity. Inferior Vena Cava Normal inferior vena cava with >50% collapse upon inspiration consistent with normal right atrial pressure, 5 mmHg. Aorta The aortic root size at the sinus of Valsalva is normal. Left Ventricular Outflow Tract Name Value Normal LVOT 2D LVOT Diameter 2.0 cm
[2019-12-07] MEDS: ATORVASTATIN 20 MG TABLET PO ×2 (02:39→20:38)
[2019-12-07 06:18] LABS: Basophils Percent Auto 0.4 % (0.2-1.2); Eosinophils Absolute Auto 0.1 K/mm3 (0-0.3); Hematocrit 26.7 % (37.0-47.0); Hemoglobin 8.5 g/dL (12.0-15.0); Immature Granulocyte Absolute 0.01 K/mm3 (0.00-0.031); Immature Granulocyte Percent A 0.2 % (0-0.5); Lymphocytes Percent Auto 34.4 % (18.3-44.2); Mean Corpuscular HGB Conc 31.8 g/dl (32-36); Mean Corpuscular Hemoglobin 27.6 pg (26-34); Mean Corpuscular Volume 86.7 fl (80-100); Mean Platelet Volume 12.6 fl (7.4-10.4); Monocytes Absolute Auto 0.5 K/mm3 (0.1-0.6); Monocytes Percent Auto 10.3 % (2.6-8.5); Neutrophils Absolute Auto 2.8 K/mm3 (1.3-6.7); Neutrophils Percent Auto 53.7 % (45.5-73.1); Platelet Count Result 156 k/mm3 (150-375); Red Blood Count 3.08 M/mm3 (4.2-5.4); Red Cell Distribution Width 13.2 % (11.5-14.5); White Blood Count 5.2 K/mm3 (4.5-10.0)
[2019-12-07 06:40] LABS: Anion Gap 5 mmol/L (8-16); Blood Urea Nitrogen 20 mg/dL (7-17); Calcium 8.6 mg/dL (8.4-10.2); Carbon Dioxide 27 mmol/L (22-30); Chloride 103 mmol/L (98-107); Estimated CRCL calculation 50 ml/min; Estimated Glomerular Filt Rate > 60; Glucose 100 mg/dL (65-105); Potassium 3.7 mmol/L (3.4-5.0); Sodium 135 mmol/L (137-145)
[2019-12-07 07:58] LABS: Glucose Point of Care 96 (65-105)
[2019-12-07] MEDS: OMEGA 3 POLYUNSAT FATTY ACIDS 1 GM CAP PO ×2 (08:36→17:24)
[2019-12-07] MEDS: metFORMIN HCL 500 MG TABLET BY MOUTH ×2 (08:36→17:24)
[2019-12-07] MEDS: SODIUM CHLORIDE 0.9% IV 1,000 ML 80 ML IV CONT ×2 (08:37→21:14)
[2019-12-07] MEDS: carvediloL 6.25 MG TABLET PO (08:37)
[2019-12-07] MEDS: FLUTICASONE/SALMETEROL 115-21 MCG INHALER 1 PUFF 2 PUFF INHALATION ×2 (09:22→21:02)
--- NOTE | 2019-12-07 10:14 | PC.NURSE ---
PT notified RN that patient was not responsive to commands during therapy and that patient was not answering questions. RN assessed patient and noted differences compared to initial assessment that were consistent with stroke like symptoms. 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 Rapid response CODE STROKE was initiated. VS at time of call: BP 180/151, R 14, P 68, T 98.6, O2 98% on room air.
[2019-12-07 10:23] LABS: Glucose Point of Care 158 (65-105)
--- NOTE | 2019-12-07 10:32 | PCPTNOTE ---
Orders to see this patient this morning...patient not responding as he had been earlier...NURSING informed...rapid response/code stroke called by Nursing...patient not appropriate for therapy at this time...will be happy to re-eval as medical situation stabilizes
--- NOTE | 2019-12-07 10:32 | PCOTNOTE ---
Code Stroke called during attempted therapy evaluation. Patient will need medical workup. Re-order occupational therapy when medically appropriate.
--- NOTE | 2019-12-07 10:39 | PCPTNOTE ---
While attempting to eval this patient this morning, patient?s interactions became slower, and more incoherent?when asked the CAN how she had done earlier, patient apparently had been much more alert and conversant?notified the nurse who called a ?rapid response Code Stroke?
[2019-12-07] MEDS: APIXABAN 5 MG TABLET BY MOUTH (11:02)
--- NOTE | 2019-12-07 11:37 | PM.CNCAR ---
Assessment and Plan Assessment and plan (1) Syncope and collapse: Code(s): R55 - Syncope and collapse Status: Acute Assessment and Plan: Could be related to orthostatic syncope as her orthostatics are mildly positive 101 drops to 91 systolic upon standing even after receiving IVF. Need to r/o arrhythmia (VT or VF), and pacemaker malfunction as she is pacemaker dependent. Need to r/o stroke as she has new RUE weakness. (2) Hypertension: Qualifiers: Hypertension type: essential hypertension Qualified Code(s): I10 - Essential (primary) hypertension Code(s): I10 - Essential (primary) hypertension Status: Chronic (3) Biventricular pacemaker check: Code(s): Z45.018 - Encounter for adjustment and management of other part of cardiac pacemaker Status: Acute Assessment and Plan: Interrogate Medtronic pacemaker. (4) LBBB (left bundle branch block): Code(s): I44.7 - Left bundle-branch block, unspecified Status: Acute (5) COPD (chronic obstructive pulmonary disease): Qualifiers: COPD type: unspecified COPD Qualified Code(s): J44.9 - Chronic obstructive pulmonary disease, unspecified Code(s): J44.9 - Chronic obstructive pulmonary disease, unspecified Status: Chronic (6) CKD (chronic kidney disease) stage 3, GFR 30-59 ml/min: Code(s): N18.3 - Chronic kidney disease, stage 3 (moderate) Status: Chronic (7) Mixed hyperlipidemia: Code(s): E78.2 - Mixed hyperlipidemia Status: Chronic (8) Persistent atrial fibrillation: Code(s): I48.19 - Other persistent atrial fibrillation Status: Acute Assessment and Plan: Hold Eliquis for 2 days to allow healing of contusions/bruising and significant drop in Hb. (9) Normocytic anemia: Code(s): D64.9 - Anemia, unspecified Status: Acute History of Present Illness History of Present Illness Consult date/time: 12/07/19 11:37 Reason for consult: Syncope. Patient is a 84 yr old woman who presents to ED with syncope. 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 Reports yesterday around 11 am she was standing in her kitchen with her walker and about to take her medications when she felt the room spinning, then the next thing she knew she was lying in a puddle of blood. She had her phone in her walker and she called her daughter then 911, and she was brought to ER. She has a fractured nasal bone and laceration that was stitched in ED. She has significant bruising of her face, right arm. She has tenderness to left sided ribs and her gluteal region. Denies chest pain or sob. Normally, she can go grocery shopping without any problems. Denies orthopnea, edema. Then this morning around 10:30 she felt her RUE is weaker than usual and cannot lift it up as far. She has a history of polio that affected RUE and cannot normally lift it to her mouth, but this morning she can barely lift it. Cardiovascular Procedures Echo/MUGA:: Echo: EF 55%, diastolic dysfunction (E/e' 11), mod LAE, mod MAC, mild MR/TR, small pericardial effusion- 10/02/18. RADHA (EF 25-30%, severe global systolic dysfunction, mod LVE, severe LAE, mild MARTHA, mod MR, mod-severe TR.) - 02/08/2018 Echo (EF 55-65%, grade III diastolic dysfunction, mod LAE, mild MARTHA, mod MR, mild MAC, mod-severe TR.) - 09/07/2016 Echo (EF 55-60%, grade III diastolic dysfunction, mod MR, mild MAC, mod LAE, mod-severe TR, mod MARTHA, small pericardial effusion, mild ascending aortic dilation.) - 09/09/2016 Electrophysiology:: 10/08/19 EKG: Ventricular paced rhythm at 69 bpm. Devices ([facility]: AV bala ablation. Placement of Medtronic biventricular pacemaker.) - 02/10/2018 E
[2019-12-07 12:35] LABS: Glucose Point of Care 132 (65-105)
[2019-12-07 16:40] LABS: Glucose Point of Care 113 (65-105)
--- NOTE | 2019-12-07 16:52 | PM.IMPN ---
Progress Note: A&P Assessment and Plan (1) Syncope and collapse: Code(s): R55 - Syncope and collapse Status: Acute Assessment and Plan: r/o cardiogenic vs. vasovagal - Admit to med-surg for observation, telemetry, fall precautions, ambulate with assistance. Check orthostatics. IV hydration overnight. Check TSH w/ reflex T4, Echocardiogram. 12/07/19 16:52 patient is 84 female with history coronary artery disease pacemaker dependent while in her kitchen patient suddenly fair and landed on the floor sustained mild fracture of the nasal bone,called her daughter and patient was brought to the emergency department for further evaluate, patient denies any his associates some her chest pain palpitation or dizziness prior to fall, patient is on Eliquis, this morning patient refused her Eliquis as patient was concern for nose bleed however this morning patient had complained upper extremity weakness andand CVA code was called, CT scan of the head did not show any acute injury, patient is seen by delicatessen goods stock clerk, patient does have mild orthostatic, and her delicatessen goods stock clerk recommended integration of her pacemaker, will continue to monitor the patient will have a PT OT evaluate the patient patient seen by her delicatessen goods stock clerk and further recommendation to follow (2) Fracture, nasal: Code(s): S02.2XXA - Fracture of nasal bones, initial encounter for closed fracture Status: Acute Assessment and Plan: Minimally displaced. Continue supportive care. Consider referral to plastic surgery. (3) Contusion of forearm, right: Code(s): S50.11XA - Contusion of right forearm, initial encounter Status: Acute Assessment and Plan: No acute fracture on xrays. Continue supportive care, pain control as needed. (4) Laceration of nose: Code(s): S01.21XA - Laceration without foreign body of nose, initial encounter Status: Acute Assessment and Plan: The patient's laceration has been sutured in the ER. (5) Normocytic anemia: Code(s): D64.9 - Anemia, unspecified Status: Acute Assessment and Plan: No signs of acute blood loss. Monitor H/H, transfuse prn. (6) Transaminitis: Code(s): R74.0 - Nonspecific elevation of levels of transaminase and lactic acid dehydrogenase [LDH] Status: Chronic Assessment and Plan: Chronic transaminits may be secondary to fatty liver disease. Monitor LFTs. (7) CKD (chronic kidney disease) stage 3, GFR 30-59 ml/min: Code(s): N18.3 - Chronic kidney disease, stage 3 (moderate) Status: Chronic Assessment and Plan: Renal function appears to be at baseline. Monitor renal function and urine output. (8) Atrial fibrillation: Qualifiers: Atrial fibrillation type: unspecified Qualified Code(s): I48.91 - Unspecified atrial fibrillation Code(s): I48.91 - Unspecified atrial fibrillation Status: Chronic Assessment and Plan: Continue beta lindy and Eliquis for anticoagulation. (9) COPD (chronic obstructive pulmonary disease): Qualifiers: COPD type: unspecified COPD Qualified Code(s): J44.9 - Chronic obstructive pulmonary disease, unspecified Code(s): J44.9 - Chronic obstructive pulmonary disease, unspecified Status: Chronic Assessment and Plan: continue bronchodilators. (10) Diabetes mellitus: Qualifiers: Diabetes mellitus type: type 2 Diabetes mellitus long term care administrator insulin use: without long term care administrator use Diabetes mellitus complication status: without complication Qualified Code(s): E11.9 - Type 2 diabetes mellitus without complications Code(s): E11.9 - Type 2 diabetes mellitus without complications Status: Chronic Assessment and Plan: accuchecks, SSI Coverage, hypoglycemic protocol. Continue metformin PO. (11) Hypertension: Qualifiers: Hypertension type: essential hypertension Qualified Code(s): I10 - Essential (primar
[2019-12-07 17:03] LABS: Hematocrit 26.6 % (37.0-47.0); Hemoglobin 8.3 g/dL (12.0-15.0); Mean Corpuscular HGB Conc 31.2 g/dl (32-36); Mean Corpuscular Hemoglobin 27.9 pg (26-34); Mean Corpuscular Volume 89.6 fl (80-100); Mean Platelet Volume 12.5 fl (7.4-10.4); Platelet Count Result 146 k/mm3 (150-375); Red Blood Count 2.97 M/mm3 (4.2-5.4); Red Cell Distribution Width 13.1 % (11.5-14.5); White Blood Count 5.5 K/mm3 (4.5-10.0)
[2019-12-07 21:22] LABS: Glucose Point of Care 144 (65-105)
[2019-12-08] VITALS (10 sets, daily range): BP systolic 97–139; BP diastolic 55–74; PULSE 70–106; RESP 16–18; TEMP 36.1–36.9; O2SAT 97–98
[2019-12-08] MEDS: SODIUM CHLORIDE 0.9% IV 1,000 ML 125 ML IV CONT (05:42)
[2019-12-08 06:04] LABS: Hematocrit 22.7 % (37.0-47.0); Hemoglobin 7.1 g/dL (12.0-15.0); Mean Corpuscular HGB Conc 31.3 g/dl (32-36); Mean Corpuscular Hemoglobin 28.5 pg (26-34); Mean Corpuscular Volume 91.2 fl (80-100); Mean Platelet Volume 12.9 fl (7.4-10.4); Platelet Count Result 95 k/mm3 (150-375); Red Blood Count 2.49 M/mm3 (4.2-5.4); Red Cell Distribution Width 13.5 % (11.5-14.5); White Blood Count 4.3 K/mm3 (4.5-10.0)
[2019-12-08 07:45] LABS: Hemoglobin 7.9 g/dL (12.0-15.0)
[2019-12-08 07:46] LABS: Glucose Point of Care 95 (65-105)
[2019-12-08 07:53] LABS: Anion Gap 4 mmol/L (8-16); Blood Urea Nitrogen 20 mg/dL (7-17); Calcium 8.1 mg/dL (8.4-10.2); Carbon Dioxide 24 mmol/L (22-30); Chloride 107 mmol/L (98-107); Estimated CRCL calculation 45 ml/min; Estimated Glomerular Filt Rate 60; Glucose 100 mg/dL (65-105); Magnesium 1.7 mg/dL (1.6-2.3); Potassium 3.6 mmol/L (3.4-5.0); Sodium 135 mmol/L (137-145)
[2019-12-08] MEDS: OMEGA 3 POLYUNSAT FATTY ACIDS 1 GM CAP PO ×2 (08:34→17:16)
[2019-12-08] MEDS: metFORMIN HCL 500 MG TABLET BY MOUTH ×2 (08:34→17:16)
--- NOTE | 2019-12-08 08:43 | PM.PNCARD ---
Progress Note: A&P Assessment and Plan (1) Normocytic anemia: Code(s): D64.9 - Anemia, unspecified Status: Acute (2) Syncope and collapse: Code(s): R55 - Syncope and collapse Status: Acute Assessment and Plan: Probably due to orthostatic syncope as her orthostatics are mildly positive 101 drops to 91 systolic upon standing even after receiving IVF. [employer] pacemaker interrogation on 12/07/19 is normal with normal functioning pacemaker; no pauses or VT/VF. She is pacemaker dependent given AV bala ablation. Agree to hold off on IVF now to avoid fluid overload. No need for Bumetanide or diuretics right now. (3) Hypertension: Qualifiers: Hypertension type: essential hypertension Qualified Code(s): I10 - Essential (primary) hypertension Code(s): I10 - Essential (primary) hypertension Status: Chronic Assessment and Plan: Hold Carvedilol since her BP was low. As it comes back up, will resume. (4) LBBB (left bundle branch block): Code(s): I44.7 - Left bundle-branch block, unspecified Status: Acute (5) Biventricular pacemaker check: Code(s): Z45.018 - Encounter for adjustment and management of other part of cardiac pacemaker Status: Acute (6) COPD (chronic obstructive pulmonary disease): Qualifiers: COPD type: unspecified COPD Qualified Code(s): J44.9 - Chronic obstructive pulmonary disease, unspecified Code(s): J44.9 - Chronic obstructive pulmonary disease, unspecified Status: Chronic (7) Mixed hyperlipidemia: Code(s): E78.2 - Mixed hyperlipidemia Status: Chronic (8) Persistent atrial fibrillation: Code(s): I48.19 - Other persistent atrial fibrillation Status: Acute Assessment and Plan: Rate is normal and paced. Holding off on Eliquis for today and resume tomorrow given significant bruising/epistaxis and significant anemia. Keep Hb >8 gm. It is trending back up, part of it is dilutional from IVF. Subjective Date/time seen: 12/08/19 08:43 Reports left ribs discomfort with palpation or deep breathing. No chest pain or sob or dizziness. Exam Const: General: comfortable and no acute distress Neck: Neck: no JVD Carotids: no bruits Resp: Auscultation: clear to auscultation bilaterally, no crackles, no rales, no rhonchi and no wheezes Cardio: Rate: regular rate Rhythm: regular rhythm Heart sounds: no murmurs GI: Inspection: non-distended Neuro: Speech: normal speech Extrem: Right lower extremity: no edema Left lower extremity: no edema Objective Data Vital Signs Vital Signs: Vital Signs - 24 hr 12/07/19 08:59 12/07/19 10:17 12/07/19 10:59 Temperature 97.2 F L 98.6 F Pulse Rate 74 57 L Respiratory Rate 16 94 H Blood Pressure 104/46 L 180/151 H 108/56 L Pulse Oximetry 97 94 12/07/19 11:16 12/07/19 11:20 12/07/19 12:00 Temperature 98.6 F Pulse Rate 71 73 Respiratory Rate 20 Blood Pressure 91/39 L 90/34 L Pulse Oximetry 100 12/07/19 16:00 12/07/19 16:44 12/07/19 20:00 Temperature 97.2 F L Pulse Rate 70 70 70 Respiratory Rate 18 Blood Pressure 114/52 L Pulse Oximetry 98 12/07/19 20:07 12/08/19 00:00 12/08/19 04:00 Temperature 98 F 97.9 F Pulse Rate 70 70 71 Respiratory Rate 16 16 Blood Pressure 117/51 L 97/74 L Pulse Oximetry 98 97 12/08/19 08:00 12/08/19 08:06 Temperature 97.9 F Pulse Rate 71 Respiratory Rate 16 Blood Pressure 129/60 129/60 Pulse Oximetry 97 Intake/Output Intake/Output: Intake & Output 12/05/19 12/06/19 12/07/19 12/08/19 23:59 23:59 23:59 23:59 Intake Total 1200 3280 1966 Output Total 1400 500 Balance 1200 1880 1466 Meds/Results Medications: Active Medications Generic Name Dose Route Start Last Admin Trade Name Freq PRN Reason Stop Dose Admin Albuterol 1 puff 12/07/19 01:27 Proventil Hfa INHALATION Q4H PRN Shortness Of Breath Apixaban 5 mg
[2019-12-08] MEDS: FLUTICASONE/SALMETEROL 115-21 MCG INHALER 1 PUFF 2 PUFF INHALATION ×2 (09:05→19:34)
[2019-12-08] MEDS: POTASSIUM CHLORIDE 20 MEQ TABLET 40 MEQ PO (09:49)
[2019-12-08 11:34] LABS: Glucose Point of Care 93 (65-105)
--- NOTE | 2019-12-08 16:01 | PM.IMPN ---
Progress Note: A&P Assessment and Plan (1) Syncope and collapse: Code(s): R55 - Syncope and collapse Status: Acute Assessment and Plan: r/o cardiogenic vs. vasovagal - Admit to med-surg for observation, telemetry, fall precautions, ambulate with assistance. Check orthostatics. IV hydration overnight. Check TSH w/ reflex T4, Echocardiogram. 12/08/19 16:02 patient is 84 female with history coronary artery disease pacemaker dependent while in her kitchen patient suddenly fair and landed on the floor sustained mild fracture of the nasal bone,called her daughter and patient was brought to the emergency department for further evaluate, patient denies any his associates some her chest pain palpitation or dizziness prior to fall, patient is on Eliquis, patient had a symptoms with complaint weakness and numbness in upper extremity yesterday CT scan of the head was negative for any acute disease, patient is seen her cardiology, pacemaker was integrated and and is functioning normally, patient is being gently hydrated, today her symptoms much improved patient was able to move around was able to use toilet without months help, today patient denies any any dizziness chest pain palpitation fever or chills. will have a PT OT evaluate the patient patient will benefit going for rehab before going home (2) Fracture, nasal: Code(s): S02.2XXA - Fracture of nasal bones, initial encounter for closed fracture Status: Acute Assessment and Plan: Minimally displaced. Continue supportive care. Consider referral to plastic surgery. (3) Contusion of forearm, right: Code(s): S50.11XA - Contusion of right forearm, initial encounter Status: Acute Assessment and Plan: No acute fracture on xrays. Continue supportive care, pain control as needed. (4) Laceration of nose: Code(s): S01.21XA - Laceration without foreign body of nose, initial encounter Status: Acute Assessment and Plan: The patient's laceration has been sutured in the ER. (5) Normocytic anemia: Code(s): D64.9 - Anemia, unspecified Status: Acute Assessment and Plan: No signs of acute blood loss. Monitor H/H, transfuse prn. (6) Transaminitis: Code(s): R74.0 - Nonspecific elevation of levels of transaminase and lactic acid dehydrogenase [LDH] Status: Chronic Assessment and Plan: Chronic transaminits may be secondary to fatty liver disease. Monitor LFTs. (7) CKD (chronic kidney disease) stage 3, GFR 30-59 ml/min: Code(s): N18.3 - Chronic kidney disease, stage 3 (moderate) Status: Chronic Assessment and Plan: Renal function appears to be at baseline. Monitor renal function and urine output. (8) Atrial fibrillation: Qualifiers: Atrial fibrillation type: unspecified Qualified Code(s): I48.91 - Unspecified atrial fibrillation Code(s): I48.91 - Unspecified atrial fibrillation Status: Chronic Assessment and Plan: Continue beta lindy and Eliquis for anticoagulation. (9) COPD (chronic obstructive pulmonary disease): Qualifiers: COPD type: unspecified COPD Qualified Code(s): J44.9 - Chronic obstructive pulmonary disease, unspecified Code(s): J44.9 - Chronic obstructive pulmonary disease, unspecified Status: Chronic Assessment and Plan: continue bronchodilators. (10) Diabetes mellitus: Qualifiers: Diabetes mellitus type: type 2 Diabetes mellitus supervisor intermediates insulin use: without mcc use Diabetes mellitus complication status: without complication Qualified Code(s): E11.9 - Type 2 diabetes mellitus without complications Code(s): E11.9 - Type 2 diabetes mellitus without complications Status: Chronic Assessment and Plan: accuchecks, SSI Coverage, hypoglycemic protocol. Continue metformin PO. (11) Hypertension: Qualifiers: Hypertension type: essential hypertens
[2019-12-08 17:21] LABS: Glucose Point of Care 120 (65-105)
[2019-12-08 19:47] LABS: IFOB Positive Control Positive; Immunochemical Fecal Occult Bl Positive (N)
[2019-12-08] MEDS: ATORVASTATIN 20 MG TABLET PO (21:07)
[2019-12-08 22:12] LABS: Glucose Point of Care 115 (65-105)
[2019-12-09] VITALS (15 sets, daily range): BP systolic 120–158; BP diastolic 56–74; PULSE 51–72; RESP 16–20; TEMP 36.1–36.4; O2SAT 95–99
[2019-12-09 06:26] LABS: Hematocrit 22.3 % (37.0-47.0); Mean Corpuscular HGB Conc 31.4 g/dl (32-36); Mean Corpuscular Hemoglobin 27.7 pg (26-34); Mean Corpuscular Volume 88.1 fl (80-100); Mean Platelet Volume 12.3 fl (7.4-10.4); Platelet Count Result 128 k/mm3 (150-375); Red Blood Count 2.53 M/mm3 (4.2-5.4); Red Cell Distribution Width 13.3 % (11.5-14.5); White Blood Count 5.3 K/mm3 (4.5-10.0)
[2019-12-09 07:24] LABS: Anion Gap 3 mmol/L (8-16); Blood Urea Nitrogen 14 mg/dL (7-17); Calcium 8.4 mg/dL (8.4-10.2); Carbon Dioxide 25 mmol/L (22-30); Chloride 108 mmol/L (98-107); Estimated CRCL calculation 57 ml/min; Estimated Glomerular Filt Rate > 60; Glucose 97 mg/dL (65-105); Sodium 136 mmol/L (137-145)
[2019-12-09 07:45] LABS: Glucose Point of Care 92 (65-105)
--- NOTE | 2019-12-09 08:07 | PM.PNCARD ---
Progress Note: A&P Assessment and Plan (1) Normocytic anemia: Code(s): D64.9 - Anemia, unspecified Status: Acute Assessment and Plan: May need blood transfusions if Hb<8 gm and worsens. Followed by hospitalist. (2) Syncope and collapse: Code(s): R55 - Syncope and collapse Status: Acute Assessment and Plan: Probably due to orthostatic syncope as her orthostatics are mildly positive 101 drops to 91 systolic upon standing even after receiving IVF. [employer] pacemaker interrogation on 12/07/19 is normal with normal functioning pacemaker; no pauses or VT/VF. She is pacemaker dependent given AV bala ablation. Agree to hold off on IVF now to avoid fluid overload. No need for Bumetanide or diuretics right now. (3) Hypertension: Qualifiers: Hypertension type: essential hypertension Qualified Code(s): I10 - Essential (primary) hypertension Code(s): I10 - Essential (primary) hypertension Status: Chronic Assessment and Plan: Hold Carvedilol since her BP was low. As it comes back up, will resume. (4) LBBB (left bundle branch block): Code(s): I44.7 - Left bundle-branch block, unspecified Status: Acute (5) Biventricular pacemaker check: Code(s): Z45.018 - Encounter for adjustment and management of other part of cardiac pacemaker Status: Acute (6) COPD (chronic obstructive pulmonary disease): Qualifiers: COPD type: unspecified COPD Qualified Code(s): J44.9 - Chronic obstructive pulmonary disease, unspecified Code(s): J44.9 - Chronic obstructive pulmonary disease, unspecified Status: Chronic (7) Mixed hyperlipidemia: Code(s): E78.2 - Mixed hyperlipidemia Status: Chronic (8) Persistent atrial fibrillation: Code(s): I48.19 - Other persistent atrial fibrillation Status: Acute Assessment and Plan: Rate is normal and paced. Holding off on Eliquis for another day and resume tomorrow given significant bruising/epistaxis and worsened anemia. Keep Hb >8 gm. It is trending back up, part of it is dilutional from IVF. Subjective Date/time seen: 12/09/19 08:07 Reports sore all over . Denies chest pain or sob. No edema of legs. Exam Const: General: comfortable and no acute distress Neck: Neck: no JVD Carotids: no bruits Resp: Auscultation: clear to auscultation bilaterally, no crackles, no rales, no rhonchi and no wheezes Cardio: Rate: regular rate Rhythm: regular rhythm Heart sounds: no murmurs GI: Inspection: non-distended Neuro: Speech: normal speech Extrem: Right lower extremity: no edema Left lower extremity: no edema Objective Data Vital Signs Vital Signs: Vital Signs - 24 hr 12/08/19 12:00 12/08/19 14:26 12/08/19 16:00 Temperature 97.0 F L Pulse Rate 106 H 75 70 Respiratory Rate 18 Blood Pressure 126/61 Pulse Oximetry 97 12/08/19 19:35 12/08/19 20:00 12/08/19 21:30 Temperature 98.5 F Pulse Rate 71 71 70 Respiratory Rate 18 Blood Pressure 139/55 L Pulse Oximetry 98 98 12/09/19 00:00 12/09/19 04:11 12/09/19 05:40 Temperature 96.9 F L Pulse Rate 70 70 69 Respiratory Rate 16 Blood Pressure 120/57 L Pulse Oximetry 96 Intake/Output Intake/Output: Intake & Output 12/06/19 12/07/19 12/08/19 12/09/19 23:59 23:59 23:59 23:59 Intake Total 1200 3280 2856 150 Output Total 1400 1350 Balance 1200 1880 1506 150 Meds/Results Medications: Active Medications Generic Name Dose Route Start Last Admin Trade Name Freq PRN Reason Stop Dose Admin Albuterol 1 puff 12/07/19 01:27 Proventil Hfa INHALATION Q4H PRN Shortness Of Breath Apixaban 5 mg 12/07/19 09:00 12/07/19 11:02 Eliquis BY MOUTH 5 mg BID JANET Administration Atorvastatin Calcium 20 mg 12/07/19 01:35 12/08/19 21:07 Lipitor PO 20 mg HS JANET Administration Carvedilol 6.25 mg 12/07/19 09:00 12/07/19 08:37 Coreg PO 6.
[2019-12-09] MEDS: SODIUM CHLORIDE 0.9% IV 250 ML 30 ML IV CONT (08:36)
[2019-12-09] MEDS: OMEGA 3 POLYUNSAT FATTY ACIDS 1 GM CAP PO ×2 (08:36→16:15)
[2019-12-09] MEDS: metFORMIN HCL 500 MG TABLET BY MOUTH ×2 (08:36→16:15)
[2019-12-09] MEDS: FLUTICASONE/SALMETEROL 115-21 MCG INHALER 1 PUFF 2 PUFF INHALATION ×2 (10:09→19:09)
[2019-12-09 11:36] LABS: Glucose Point of Care 115 (65-105)
[2019-12-09] MEDS: PEG (High)/E-LYTE SOLN 4,000 ML BTL 4000 ML PO (15:19)
[2019-12-09 15:20] LABS: Hematocrit 27.3 % (37.0-47.0); Hemoglobin 8.9 g/dL (12.0-15.0)
--- NOTE | 2019-12-09 16:11 | WPDGICN ---
Assessment and Plan Assessment and plan (1) Syncope: Code(s): R55 - Syncope and collapse Status: Acute (2) Anemia: Code(s): D64.9 - Anemia, unspecified Status: Acute Assessment and Plan: patient with decline in hemoglobin as well as occult blood in stool. For this reason I have been asked to perform GI endoscopy. She has never had a prior colonoscopy. Plan is for colonoscopy an EGD to search for source of occult blood loss. This will also be done to determine safety of restarting anticoagulation. It is also quite likely anemia is related to the bruising encountered after a fall. Plan for GI endoscopy tomorrow or in morning after preparation today. (3) Occult blood in stools: Code(s): R19.5 - Other fecal abnormalities Status: Acute Assessment and Plan: Occult blood in stool of uncertain etiology. Plan to his to assess with endoscopy in the morning. Discussed case with Dr. ortiz well today. (4) Facial bruising: Code(s): S00.83XA - Contusion of other part of head, initial encounter Status: Acute (5) Atrial fibrillation: Qualifiers: Atrial fibrillation type: unspecified Qualified Code(s): I48.91 - Unspecified atrial fibrillation Code(s): I48.91 - Unspecified atrial fibrillation Status: Chronic (6) Anticoagulation adequate: Code(s): Z79.01 - superintendent terminal (current) use of anticoagulants Status: Acute GI Consult Note Consult date/time: 12/09/19 16:11 HPI: Marcia Barroso is a 84 year old female seen for evaluation of Hemoccult-positive stools and decline in hemoglobin. Patient has an underlying history of atrial fibrillation on Eliquis anticoagulation she has a history of pacemaker insertion in the past. At home she suffered a fall with a syncopal episode. She suffered facial bruising with laceration to her nose. Patient denies obvious blood in her stools. She denies any significant abdominal pain. She has never had a prior colonoscopy. Family history is noncontributory. Review of Systems Review of Systems: All systems reviewed & are unremarkable except as noted in HPI and below PMFSH Past Medical History Medical History Arthritis Asthma Atrial fibrillation Broken ankle COPD (chronic obstructive pulmonary disease) CVA (cerebral vascular accident) DDD (degenerative disc disease) Diabetes mellitus A1C=5.8=06/19/19 Diastolic dysfunction Dyslipidemia Glaucoma Hypertension LBBB (left bundle branch block) Obesity (BMI 30.0-34.9) Osteopenia after menopause Bilateral femoral neck osteopenia noted on DEXA scan May 2018 Pacemaker Paroxysmal atrial fibrillation With synchronized cardioversion February 2018 with subsequent recurrence of atrial fibrillation with polymorphic tachyarrhythmias requiring pacemaker placement and AV bala ablation at [facility] Pneumonia [place] With residual right arm weakness Rheumatic fever With history of moderate to severe tricuspid valve regurgitation and moderate mitral valve regurgitation (2017) with improved bowel function mild regurgitation of both valves on last echo September 2018 Right arm weakness 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% noted on echocardiogram from February 2018 with moderate to severe mitral and tricuspid regurgitation with improvement of her ejection fraction after AV bala ablation with echocardiogram September 2018 demonstrating EF of 55% with diastolic dysfunction Trimalleolar fracture of left ankle Surgical History Surgical History History of atrioventricular bala ablation History of bilateral cataract extraction History of total bilateral knee replacement Hx of tonsillectomy Presence of biventricular cardiac pacemaker Placed February 2018 at the same time as AV bala ablation Tumor of ovary Status post resection
--- NOTE | 2019-12-09 16:31 | PM.IMPN ---
Progress Note: A&P Assessment and Plan (1) Syncope and collapse: Code(s): R55 - Syncope and collapse Status: Acute Assessment and Plan: r/o cardiogenic vs. vasovagal - Admit to med-surg for observation, telemetry, fall precautions, ambulate with assistance. Check orthostatics. IV hydration overnight. Check TSH w/ reflex T4, Echocardiogram. 12/09/19 16:31 patient is 84 female with history coronary artery disease pacemaker dependent while in her kitchen patient suddenly fair and landed on the floor sustained mild fracture of the nasal bone,called her daughter and patient was brought to the emergency department for further evaluate, patient denies any his associates some her chest pain palpitation or dizziness prior to fall, patient is on Eliquis, patient had a symptoms with complaint weakness and numbness in upper extremity yesterday CT scan of the head was negative for any acute disease, patient is seen her cardiology, pacemaker was integrated and and is functioning normally, patient is being gently hydrated, today her symptoms much improved patient was able to move around was able to use toilet without months help, today patient HH is trending down and her stool is positive for hemocclt, patient seen by GI and is scheduled to colonoscopy tomorrow and further recommendation to follow patient denies any dizziness chest pain palpitation fever or chills. will have a PT OT evaluate the patient patient will benefit going for rehab before going home (2) Fracture, nasal: Code(s): S02.2XXA - Fracture of nasal bones, initial encounter for closed fracture Status: Acute Assessment and Plan: Minimally displaced. Continue supportive care. Consider referral to plastic surgery. (3) Contusion of forearm, right: Code(s): S50.11XA - Contusion of right forearm, initial encounter Status: Acute Assessment and Plan: No acute fracture on xrays. Continue supportive care, pain control as needed. (4) Laceration of nose: Code(s): S01.21XA - Laceration without foreign body of nose, initial encounter Status: Acute Assessment and Plan: The patient's laceration has been sutured in the ER. (5) Normocytic anemia: Code(s): D64.9 - Anemia, unspecified Status: Acute Assessment and Plan: No signs of acute blood loss. Monitor H/H, transfuse prn. (6) Transaminitis: Code(s): R74.0 - Nonspecific elevation of levels of transaminase and lactic acid dehydrogenase [LDH] Status: Chronic Assessment and Plan: Chronic transaminits may be secondary to fatty liver disease. Monitor LFTs. (7) CKD (chronic kidney disease) stage 3, GFR 30-59 ml/min: Code(s): N18.3 - Chronic kidney disease, stage 3 (moderate) Status: Chronic Assessment and Plan: Renal function appears to be at baseline. Monitor renal function and urine output. (8) Atrial fibrillation: Qualifiers: Atrial fibrillation type: unspecified Qualified Code(s): I48.91 - Unspecified atrial fibrillation Code(s): I48.91 - Unspecified atrial fibrillation Status: Chronic Assessment and Plan: Continue beta lindy and Eliquis for anticoagulation. (9) COPD (chronic obstructive pulmonary disease): Qualifiers: COPD type: unspecified COPD Qualified Code(s): J44.9 - Chronic obstructive pulmonary disease, unspecified Code(s): J44.9 - Chronic obstructive pulmonary disease, unspecified Status: Chronic Assessment and Plan: continue bronchodilators. (10) Diabetes mellitus: Qualifiers: Diabetes mellitus complication status: without complication Diabetes mellitus chcf insulin use: without dedicated intermodal truck driver use Diabetes mellitus type: type 2 Qualified Code(s): E11.9 - Type 2 diabetes mellitus without complications Code(s): E11.9 - Type 2 diabetes mellitus without complications Status: Chronic Assessment and Plan
[2019-12-09 16:59] LABS: Glucose Point of Care 101 (65-105)
--- NOTE | 2019-12-09 18:59 | PCCCNOTE ---
[facility] Approved initial 3 day stay at [facility] ([facility]) start Dec 08. [facility] # [id number]; next review Dec 10. Fax continuing clinicals to [phone]; Facesheet Attn: Continuing Clinical Review
[2019-12-09] MEDS: ATORVASTATIN 20 MG TABLET PO (20:21)
[2019-12-09 20:24] LABS: Glucose Point of Care 87 (65-105)
[2019-12-10] VITALS (20 sets, daily range): BP systolic 118–151; BP diastolic 53–76; PULSE 69–74; RESP 16–23; TEMP 36.2–37; O2SAT 97–100
[2019-12-10 05:57] LABS: Hematocrit 25.3 % (37.0-47.0); Hemoglobin 8.3 g/dL (12.0-15.0); Mean Corpuscular HGB Conc 32.8 g/dl (32-36); Mean Corpuscular Hemoglobin 28.6 pg (26-34); Mean Corpuscular Volume 87.2 fl (80-100); Mean Platelet Volume 12.4 fl (7.4-10.4); Platelet Count Result 148 k/mm3 (150-375); Red Cell Distribution Width 13.4 % (11.5-14.5); White Blood Count 4.4 K/mm3 (4.5-10.0)
[2019-12-10 06:17] LABS: Anion Gap 3 mmol/L (8-16); Blood Urea Nitrogen 11 mg/dL (7-17); Calcium 8.5 mg/dL (8.4-10.2); Carbon Dioxide 28 mmol/L (22-30); Chloride 105 mmol/L (98-107); Estimated CRCL calculation 65 ml/min; Estimated Glomerular Filt Rate > 60; Glucose 99 mg/dL (65-105); Sodium 136 mmol/L (137-145)
--- NOTE | 2019-12-10 07:46 | PM.PNCARD ---
Progress Note: A&P Assessment and Plan (1) Normocytic anemia: Code(s): D64.9 - Anemia, unspecified Status: Acute Assessment and Plan: Received blood transfusions on 12/09/19 to keep Hb>8 gm. Followed by hospitalist. Heme positive and going for EGD/colonscopy today. (2) Syncope and collapse: Code(s): R55 - Syncope and collapse Status: Acute Assessment and Plan: Probably due to orthostatic syncope as her orthostatics are mildly positive 101 drops to 91 systolic upon standing even after receiving IVF. [employer] pacemaker interrogation on 12/07/19 is normal with normal functioning pacemaker; no pauses or VT/VF. She is pacemaker dependent given AV bala ablation. Agree to hold off on IVF now to avoid fluid overload. No need for Bumetanide or diuretics right now. (3) Hypertension: Qualifiers: Hypertension type: essential hypertension Qualified Code(s): I10 - Essential (primary) hypertension Code(s): I10 - Essential (primary) hypertension Status: Chronic Assessment and Plan: High. Resume Carvedilol and Valsartan. (4) LBBB (left bundle branch block): Code(s): I44.7 - Left bundle-branch block, unspecified Status: Acute (5) Biventricular pacemaker check: Code(s): Z45.018 - Encounter for adjustment and management of other part of cardiac pacemaker Status: Acute (6) COPD (chronic obstructive pulmonary disease): Qualifiers: COPD type: unspecified COPD Qualified Code(s): J44.9 - Chronic obstructive pulmonary disease, unspecified Code(s): J44.9 - Chronic obstructive pulmonary disease, unspecified Status: Chronic (7) Mixed hyperlipidemia: Code(s): E78.2 - Mixed hyperlipidemia Status: Chronic (8) Persistent atrial fibrillation: Code(s): I48.19 - Other persistent atrial fibrillation Status: Acute Assessment and Plan: Rate is normal and paced. Holding off on Eliquis for another day and resume tomorrow given significant bruising/epistaxis and worsened anemia and heme positive. Keep Hb >8 gm. Resume Eliquis if OK by GI service pending results of endoscopies. Subjective Date/time seen: 12/10/19 07:46 Denies chest pain or sob or dizziness. Exam Const: General: comfortable and no acute distress Neck: Neck: no JVD Carotids: no bruits Resp: Auscultation: clear to auscultation bilaterally, no crackles, no rales, no rhonchi and no wheezes Cardio: Rate: regular rate Rhythm: regular rhythm Heart sounds: no murmurs GI: Inspection: non-distended Neuro: Speech: normal speech Extrem: Right lower extremity: no edema Left lower extremity: no edema Objective Data Vital Signs Vital Signs: Vital Signs - 24 hr 12/09/19 08:00 12/09/19 09:53 12/09/19 10:15 Temperature 97.4 F L 97.4 F L Pulse Rate 70 69 69 Respiratory Rate 18 18 Blood Pressure 125/57 L 132/56 L Pulse Oximetry 98 99 12/09/19 11:15 12/09/19 12:00 12/09/19 12:15 Temperature 97.5 F L 97.2 F L Pulse Rate 70 70 70 Respiratory Rate 16 18 Blood Pressure 140/58 L 138/69 Pulse Oximetry 98 99 12/09/19 12:41 12/09/19 14:00 12/09/19 16:00 Temperature 97.6 F 97.4 F L Pulse Rate 70 69 72 Respiratory Rate 16 18 Blood Pressure 145/63 H 145/65 H Pulse Oximetry 98 99 12/09/19 19:09 12/09/19 20:00 12/09/19 22:00 Temperature 97 F L Pulse Rate 70 71 51 L Respiratory Rate 20 20 Blood Pressure 158/74 H Pulse Oximetry 96 95 12/10/19 00:00 12/10/19 04:00 12/10/19 06:00 Temperature 97.2 F L Pulse Rate 72 70 69 Respiratory Rate 20 Blood Pressure 138/59 L Pulse Oximetry 97 Intake/Output Intake/Output: Intake & Output 12/07/19 12/08/19 12/09/19 12/10/19 23:59 23:59 23:59 23:59 Intake Total 3280 2856 1330 0 Output Total 1400 1350 300 Balance 1880 1506 1030 0 Meds/Results Medications: Active Medications Generic Name Dose Route Start Last Admin Trade Name Freq PRN
[2019-12-10 07:56] LABS: Glucose Point of Care 101 (65-105)
[2019-12-10] MEDS: FLUTICASONE/SALMETEROL 115-21 MCG INHALER 1 PUFF 2 PUFF INHALATION ×2 (08:04→21:10)
[2019-12-10 08:39] LABS: Glucose Point of Care 99 (65-105)
--- NOTE | 2019-12-10 08:55 | WPDANESEPPF ---
Anes - Initial Pre Proc Eval Procedure: Operation Date: 12/10/19 09:00 Proposed Procedures p Esophagogastroduodenoscopy & Colonoscopy - Carlos Payton MD Date/Time: 12/10/19 08:55 Surgeon: Jean Escamilla MD Pre Op Diagnosis: Orthostatic hypotension/syncope/nasal bone fractur Patient Data Age: 84 Gender: F Height: 5 ft 4 in Weight: 86.4 kg Last Vital Signs Temp 97.2 F L 12/10/19 06:00 Pulse 70 12/10/19 08:00 Resp 20 12/10/19 06:00 BP 138/59 L 12/10/19 06:00 Pulse Ox 98 12/10/19 08:06 Allergies Allergy/AdvReac Type Severity Reaction Status Date / Time aspirin Allergy Unknown Vomiting Verified 12/06/19 14:37 codeine Allergy Unknown tachycardia Verified 12/06/19 14:37 Home Medications Medication Instructions Recorded Confirmed Type albuterol sulfate 90 mcg/actuation 1 puff INHALATION Q4H PRN 03/05/19 12/06/19 History aerosol inhaler omega-3 fatty acids 1,000 mg 1,000 mg PO BID 03/05/19 12/06/19 History capsule metformin 500 mg tablet See Rx Instructions .ROUTE 09/10/19 12/06/19 Rx .COMPLEX #180 tablet polysaccharide iron complex 150 mg 150 mg PO DAILY #90 cap 09/30/19 12/06/19 Rx iron capsule apixaban 5 mg tablet See Rx Instructions .ROUTE 10/03/19 12/06/19 Rx .COMPLEX #180 tablet potassium chloride 20 mEq See Rx Instructions .ROUTE 10/03/19 12/06/19 Rx tablet,extended release .COMPLEX #90 tablet Ibcrq-Fqz-Qjg-Evzxv-Hfeut-xyzw 1 cap PO DAILY 10/16/19 12/06/19 History cholecalciferol (vitamin D3) 25 25 mcg PO DAILY 10/16/19 12/06/19 History mcg (1,000 unit) capsule valsartan 80 mg tablet 80 mg PO DAILY #90 tablet 10/22/19 12/06/19 Rx atorvastatin 20 mg tablet 20 mg PO HS #90 tablet 12/06/19 12/06/19 Rx bumetanide 1 mg PO BID 12/06/19 12/06/19 History fluticasone propion-salmeterol 1 inhalation INHALATION BID 12/06/19 12/06/19 History [Advair Diskus] triamcinolone acetonide 1 applic TOPICAL BID 12/06/19 12/06/19 History carvedilol 6.25 mg tablet 6.25 mg PO Q12H #180 tablet 12/09/19 Rx Laboratory Tests 12/09/19 12/09/19 12/09/19 07:05 11:29 15:08 WBC RBC Hgb 8.9 g/dL L g/dL (12.0-15.0) Hct 27.3 % L % (37.0-47.0) MCV MCH MCHC RDW Plt Count MPV Sodium Potassium Chloride Carbon Dioxide Anion Gap BUN Creatinine Estim Creat Clear Calc Estimated GFR Glucose POC Capillary Glucose 115 mg/dl H mg/dl (65-105) Calcium SARS-CoV-2 RNA (RT-PCR) Blood Type O Positive Antibody Screen Negative Crossmatch See Detail 12/09/19 12/09/19 12/10/19 16:17 20:20 03:23 WBC RBC Hgb Hct MCV MCH MCHC RDW Plt Count MPV Sodium Potassium Chloride Carbon Dioxide Anion Gap BUN Creatinine Estim Creat Clear Calc Estimated GFR Glucose POC Capillary Glucose 101 mg/dl mg/dl 87 mg/dl mg/dl (65-105) (65-105) Calcium SARS-CoV-2 RNA (RT-PCR) Pending Blood Type Antibody Screen Crossmatch 12/10/19 12/10/19 12/10/19 05:42 05:42 07:33 WBC 4.4 K/mm3 L K/mm3 (4.5-10.0) RBC 2.90 M/mm3 L M/mm3 (4.2-5.4) Hgb 8.3 g/dL L g/dL (12.0-15.0) Hct 25.3 % L % (37.0-47.0) MCV 87.2 fl fl (80-100) MCH 28.6 pg pg (26-34) MCHC 32.8 g/dl g/dl (32-36) RDW 13.4 % % (11.5-14.5) Plt Count 148 k/mm3 L k/mm3 (150-375) MPV 12.4 fl H fl (7.4-10.4) Sodium 13
[2019-12-10] MEDS: LACTATED RINGERS 1,000 ML 150 ML IV CONT (09:00)
--- NOTE | 2019-12-10 10:09 | SUR.OPER ---
EGD COMPLETED AT 1003, COLONSCOPY STARTED AT 1008.
[2019-12-10 10:56] LABS: Glucose Point of Care 92 (65-105)
--- NOTE | 2019-12-10 11:07 | PC.NURSE ---
Pt returned from GI lab.
[2019-12-10] MEDS: OMEGA 3 POLYUNSAT FATTY ACIDS 1 GM CAP PO ×2 (11:20→17:51)
[2019-12-10] MEDS: VALSARTAN 80 MG TABLET PO (11:20)
[2019-12-10] MEDS: metFORMIN HCL 500 MG TABLET BY MOUTH ×2 (11:20→17:51)
[2019-12-10] MEDS: carvediloL 6.25 MG TABLET PO ×2 (12:56→22:00)
--- NOTE | 2019-12-10 13:51 | PM.IMPN ---
Progress Note: A&P Assessment and Plan (1) Syncope and collapse: Code(s): R55 - Syncope and collapse Status: Acute Assessment and Plan: r/o cardiogenic vs. vasovagal - Admit to med-surg for observation, telemetry, fall precautions, ambulate with assistance. Check orthostatics. IV hydration overnight. Check TSH w/ reflex T4, Echocardiogram. 12/10/19 13:51 patient is 84 female with history coronary artery disease pacemaker dependent while in her kitchen patient suddenly fair and landed on the floor sustained mild fracture of the nasal bone,called her daughter and patient was brought to the emergency department for further evaluate, patient denies any his associates some her chest pain palpitation or dizziness prior to fall, patient is on Eliquis, patient had a symptoms with complaint weakness and numbness in upper extremity yesterday CT scan of the head was negative for any acute disease, patient is seen her cardiology, pacemaker was integrated and and is functioning normally, patient is being gently hydrated, today her symptoms much improved patient was able to move around was able to use toilet without months help, today patient HH is trending down and her stool is positive for hemocclt, patient was seen by GI and was taken to GI lab today and had a EGD which was essentially normal did not show any source of bleeding, had a colonoscopy patient does have some polyps there was no source of bleeding, polyps were excised and biopsied, patient clinically stable per GI will resume Eliquis in 2 weeks, will monitor patient over will be seen by GI and finance specialist and possibly discharge to acute rehab tomorrow. (2) Fracture, nasal: Code(s): S02.2XXA - Fracture of nasal bones, initial encounter for closed fracture Status: Acute Assessment and Plan: Minimally displaced. Continue supportive care. Consider referral to plastic surgery. (3) Contusion of forearm, right: Code(s): S50.11XA - Contusion of right forearm, initial encounter Status: Acute Assessment and Plan: No acute fracture on xrays. Continue supportive care, pain control as needed. (4) Laceration of nose: Code(s): S01.21XA - Laceration without foreign body of nose, initial encounter Status: Acute Assessment and Plan: The patient's laceration has been sutured in the ER. (5) Normocytic anemia: Code(s): D64.9 - Anemia, unspecified Status: Acute Assessment and Plan: No signs of acute blood loss. Monitor H/H, transfuse prn. (6) Transaminitis: Code(s): R74.0 - Nonspecific elevation of levels of transaminase and lactic acid dehydrogenase [LDH] Status: Chronic Assessment and Plan: Chronic transaminits may be secondary to fatty liver disease. Monitor LFTs. (7) CKD (chronic kidney disease) stage 3, GFR 30-59 ml/min: Code(s): N18.3 - Chronic kidney disease, stage 3 (moderate) Status: Chronic Assessment and Plan: Renal function appears to be at baseline. Monitor renal function and urine output. (8) Atrial fibrillation: Qualifiers: Atrial fibrillation type: unspecified Qualified Code(s): I48.91 - Unspecified atrial fibrillation Code(s): I48.91 - Unspecified atrial fibrillation Status: Chronic Assessment and Plan: Continue beta lindy and Eliquis for anticoagulation. (9) COPD (chronic obstructive pulmonary disease): Qualifiers: COPD type: unspecified COPD Qualified Code(s): J44.9 - Chronic obstructive pulmonary disease, unspecified Code(s): J44.9 - Chronic obstructive pulmonary disease, unspecified Status: Chronic Assessment and Plan: continue bronchodilators. (10) Diabetes mellitus: Qualifiers: Diabetes mellitus type: type 2 Diabetes mellitus intermediate frame tender insulin use: without residential use Diabetes mellitus complication status: without complication Qualified Code(s): E11.9 - Typ
[2019-12-10 14:22] LABS: SARS-CoV-2 RNA PCR Negative
[2019-12-10 16:51] LABS: Glucose Point of Care 113 (65-105)
[2019-12-10] MEDS: ATORVASTATIN 20 MG TABLET PO (22:00)
[2019-12-11] VITALS: PULSE 70
[2019-12-11 04:00] VITALS: PULSE 70
[2019-12-11 06:00] VITALS: BP 123/62; PULSE 70; RESP 16; TEMP 36.4; O2SAT 97
[2019-12-11 06:30] LABS: Hematocrit 25.5 % (37.0-47.0); Hemoglobin 8.2 g/dL (12.0-15.0); Mean Corpuscular HGB Conc 32.2 g/dl (32-36); Mean Corpuscular Hemoglobin 28.3 pg (26-34); Mean Corpuscular Volume 87.9 fl (80-100); Mean Platelet Volume 12.2 fl (7.4-10.4); Platelet Count Result 159 k/mm3 (150-375); Red Cell Distribution Width 13.7 % (11.5-14.5); White Blood Count 4.4 K/mm3 (4.5-10.0)
[2019-12-11 06:40] LABS: Anion Gap 4 mmol/L (8-16); Blood Urea Nitrogen 14 mg/dL (7-17); Calcium 8.3 mg/dL (8.4-10.2); Carbon Dioxide 27 mmol/L (22-30); Chloride 107 mmol/L (98-107); Estimated CRCL calculation 50 ml/min; Estimated Glomerular Filt Rate > 60; Glucose 92 mg/dL (65-105); Sodium 138 mmol/L (137-145)
[2019-12-11 07:39] LABS: Glucose Point of Care 86 (65-105)
--- NOTE | 2019-12-11 07:42 | WPDANESPN ---
Anes - Prog Note Post-Op Date/Time: 12/11/19 07:42 Cardiovascular status: normal Respiratory status: normal Airway patency: baseline Mental status: baseline Post-Op hydration status: normal Vital Signs: Last Vital Signs Temp 97.6 F 12/11/19 06:00 Pulse 70 12/11/19 06:00 Resp 16 12/11/19 06:00 BP 123/62 12/11/19 06:00 Pulse Ox 97 12/11/19 06:00 I/O: Intake & Output 12/10/19 12/10/19 12/11/19 15:59 23:59 07:59 Intake Total 780 990 350 Output Total 200 200 Balance 580 790 350 Laboratory Tests 12/11/19 05:46 12/11/19 05:46 12/10/19 12/10/19 12/10/19 03:23 07:33 08:31 WBC RBC Hgb Hct MCV MCH MCHC RDW Plt Count MPV Sodium Potassium Chloride Carbon Dioxide Anion Gap BUN Creatinine Estim Creat Clear Calc Estimated GFR Glucose POC Capillary Glucose 101 99 Calcium SARS-CoV-2 RNA (RT-PCR) Negative 12/10/19 12/10/19 12/11/19 10:54 16:42 05:46 WBC 4.4 L RBC 2.90 L Hgb 8.2 L Hct 25.5 L MCV 87.9 MCH 28.3 MCHC 32.2 RDW 13.7 Plt Count 159 MPV 12.2 H Sodium Potassium Chloride Carbon Dioxide Anion Gap BUN Creatinine Estim Creat Clear Calc Estimated GFR Glucose POC Capillary Glucose 92 113 H Calcium SARS-CoV-2 RNA (RT-PCR) 12/11/19 12/11/19 05:46 07:35 WBC RBC Hgb Hct MCV MCH MCHC RDW Plt Count MPV Sodium 138 Potassium 4.0 Chloride 107 Carbon Dioxide 27 Anion Gap 4 L BUN 14 Creatinine 0.80 Estim Creat Clear Calc 50 Estimated GFR > 60 Glucose 92 POC Capillary Glucose 86 Calcium 8.3 L SARS-CoV-2 RNA (RT-PCR) Post-procedural complaints: none Patient Feedback: Patient satisfied with anesthetic care.
[2019-12-11 08:00] VITALS: PULSE 73
[2019-12-11 08:01] VITALS: PULSE 70
[2019-12-11] MEDS: OMEGA 3 POLYUNSAT FATTY ACIDS 1 GM CAP PO (08:01)
[2019-12-11] MEDS: carvediloL 6.25 MG TABLET PO (08:01)
[2019-12-11] MEDS: metFORMIN HCL 500 MG TABLET BY MOUTH (08:01)
[2019-12-11] MEDS: VALSARTAN 80 MG TABLET PO (08:02)
--- NOTE | 2019-12-11 08:07 | PM.PNCARD ---
Progress Note: A&P Assessment and Plan (1) Normocytic anemia: Code(s): D64.9 - Anemia, unspecified Status: Acute Assessment and Plan: Received blood transfusions. Had endoscopies without evidence of active GI bleeding. Followed by hospitalist and GI. (2) Syncope and collapse: Code(s): R55 - Syncope and collapse Status: Acute Assessment and Plan: Probably due to orthostatic syncope and GI bleed as her orthostatics are mildly positive 101 drops to 91 systolic upon standing even after receiving IVF. [employer] pacemaker interrogation on 12/07/19 is normal with normal functioning pacemaker; no pauses or VT/VF. She is pacemaker dependent given AV bala ablation. Agree to hold off on IVF now to avoid fluid overload. No need for Bumetanide or diuretics right now. (3) Hypertension: Qualifiers: Hypertension type: essential hypertension Qualified Code(s): I10 - Essential (primary) hypertension Code(s): I10 - Essential (primary) hypertension Status: Chronic Assessment and Plan: Stable. (4) LBBB (left bundle branch block): Code(s): I44.7 - Left bundle-branch block, unspecified Status: Acute (5) Biventricular pacemaker check: Code(s): Z45.018 - Encounter for adjustment and management of other part of cardiac pacemaker Status: Acute (6) COPD (chronic obstructive pulmonary disease): Qualifiers: COPD type: unspecified COPD Qualified Code(s): J44.9 - Chronic obstructive pulmonary disease, unspecified Code(s): J44.9 - Chronic obstructive pulmonary disease, unspecified Status: Chronic (7) Mixed hyperlipidemia: Code(s): E78.2 - Mixed hyperlipidemia Status: Chronic (8) Persistent atrial fibrillation: Code(s): I48.19 - Other persistent atrial fibrillation Status: Acute Assessment and Plan: Rate is normal and paced. Holding off on Eliquis for 2 additional weeks as per GI service given hemaccult positive and significant bruising/epistaxis and worsened anemia. Keep Hb >8 gm. May d/c from hospital from cardiology standpoint and F/U with me in 2 weeks. Subjective Date/time seen: 12/11/19 08:07 Denies chest pain or sob or dizziness. Exam Const: General: comfortable and no acute distress Neck: Neck: no JVD Carotids: no bruits Resp: Auscultation: clear to auscultation bilaterally, no crackles, no rales, no rhonchi and no wheezes Cardio: Rate: regular rate Rhythm: regular rhythm Heart sounds: no murmurs GI: Inspection: non-distended Neuro: Speech: normal speech Extrem: Right lower extremity: no edema Left lower extremity: no edema Objective Data Vital Signs Vital Signs: Vital Signs - 24 hr 12/10/19 08:57 12/10/19 08:58 12/10/19 10:24 Temperature 98.2 F Pulse Rate 73 71 Respiratory Rate 18 21 H Blood Pressure 142/57 H 146/76 H Pulse Oximetry 100 100 99 12/10/19 10:34 12/10/19 10:44 12/10/19 10:54 Temperature Pulse Rate 72 70 70 Respiratory Rate 23 H 20 20 Blood Pressure 122/59 L 141/70 H 143/68 H Pulse Oximetry 100 99 100 12/10/19 11:26 12/10/19 12:00 12/10/19 12:56 Temperature 97.1 F L Pulse Rate 70 71 72 Respiratory Rate 18 Blood Pressure 151/75 H Pulse Oximetry 100 12/10/19 14:00 12/10/19 16:00 12/10/19 20:00 Temperature 97.9 F Pulse Rate 74 70 70 Respiratory Rate 18 Blood Pressure 118/53 L Pulse Oximetry 99 12/10/19 20:32 12/10/19 21:11 12/10/19 22:00 Temperature 98.6 F Pulse Rate 73 70 Respiratory Rate 16 Blood Pressure 143/70 H Pulse Oximetry 98 98 12/11/19 00:00 12/11/19 04:00 12/11/19 06:00 Temperature 97.6 F Pulse Rate 70 70 70 Respiratory Rate 16 Blood Pressure 123/62 Pulse Oximetry 97 12/11/19 08:01 Temperature Pulse Rate 70 Respiratory Rate Blood Pressure Pulse Oximetry Intake/Output Intake/Output: Intake & Output 12/08/19 12/09/19 12/10/19 12/11/19 23:
[2019-12-11] MEDS: FLUTICASONE/SALMETEROL 115-21 MCG INHALER 1 PUFF 2 PUFF INHALATION (08:24)
[2019-12-11 08:26] VITALS: PULSE 70; RESP 18; O2SAT 96
--- NOTE | 2019-12-11 09:34 | WPDGIPROGNO ---
Progress Note: A&P Additional Plan Patient alert and comfortable this morning. No GI bleeding described. Physical exam reveals facial ecchymoses. Lungs are clear. Heart without murmur. Abdomen is soft and nontender. Labs reveal hemoglobin 8.2, hematocrit 25, stable at present. Impression 1. anemia. Likely multifactorial. Decline in hemoglobin likely related to bruising at the her face. 2. Colon polyp identified by colonoscopy yesterday appears benign histology pending. Typically follow-up in 3-5 years advised. This will be arranged depending on her medical condition in 3-5 years. 4. Occult blood in stool. Could be from hemorrhoids or the polyp. No additional investigation warranted at this time. Subjective Date/time seen: 12/11/19 09:34 Objective Data Vital Signs Vital Signs: Vital Signs - 24 hr 12/10/19 10:24 12/10/19 10:34 12/10/19 10:44 Temperature Pulse Rate 71 72 70 Respiratory Rate 21 H 23 H 20 Blood Pressure 146/76 H 122/59 L 141/70 H Pulse Oximetry 99 100 99 12/10/19 10:54 12/10/19 11:26 12/10/19 12:00 Temperature 97.1 F L Pulse Rate 70 70 71 Respiratory Rate 20 18 Blood Pressure 143/68 H 151/75 H Pulse Oximetry 100 100 12/10/19 12:56 12/10/19 14:00 12/10/19 16:00 Temperature 97.9 F Pulse Rate 72 74 70 Respiratory Rate 18 Blood Pressure 118/53 L Pulse Oximetry 99 12/10/19 20:00 12/10/19 20:32 12/10/19 21:11 Temperature 98.6 F Pulse Rate 70 73 Respiratory Rate 16 Blood Pressure 143/70 H Pulse Oximetry 98 98 12/10/19 22:00 12/11/19 00:00 12/11/19 04:00 Temperature Pulse Rate 70 70 70 Respiratory Rate Blood Pressure Pulse Oximetry 12/11/19 06:00 12/11/19 08:00 12/11/19 08:01 Temperature 97.6 F Pulse Rate 70 73 70 Respiratory Rate 16 Blood Pressure 123/62 Pulse Oximetry 97 12/11/19 08:26 Temperature Pulse Rate 70 Respiratory Rate 18 Blood Pressure Pulse Oximetry 96 Intake/Output Intake/Output: Intake & Output 12/08/19 12/09/19 12/10/1902/20 23:59 23:59 23:59 23:59 Intake Total 2856 1330 1770 590 Output Total 1350 300 400 Balance 1506 1030 1370 590 Meds/Results Medications: Active Medications Generic Name Dose Route Start Last Admin Trade Name Freq PRN Reason Stop Dose Admin Albuterol 1 puff 12/07/19 01:27 Proventil Hfa INHALATION Q4H PRN Shortness Of Breath Apixaban 5 mg 12/07/19 09:00 12/07/19 11:02 Eliquis BY MOUTH 5 mg BID JANET Administration Atorvastatin Calcium 20 mg 12/07/19 01:35 12/10/19 22:00 Lipitor PO 20 mg HS JANET Administration Carvedilol 6.25 mg 12/07/19 09:00 12/11/19 08:01 Coreg PO 6.25 mg Q12HR JANET Administration Dextrose 12.5 gm 12/07/19 01:29 Dextrose 50% Syringe IV PUSH PRN PRN Hypoglycemia Protocol Fish Oil 1 gm 12/07/19 09:00 12/11/19 08:01 Lovaza PO 1 gm BID JANET Administration Glucagon 1 mg 12/07/19 01:29 Glucagon For Inj IM PRN PRN Hypoglycemia Protocol Glucose 15 gm 12/07/19 01:29 Glutose 15 PO PRN PRN Hypoglycemia Protocol Dextrose 1,000 mls @ 100 mls/hr 12/07/19 01:29 Dextrose 5% 1,000 Ml IVPB PRN PRN Hypoglycemia Protocol Acetaminophen 1,000 mg in 100 mls @ 400 mls/hr 12/09/19 11:11 12/09/19 16:36 Ofirmev 1,000 Mg Ivpb IVPB 12/12/19 11:12 Infused Q6H PRN Infusion Pain Rated 4-6 Insulin Aspart 3 - 6 units 12/07/19 08:00 12/11/19 08:00 Novolog SUB-Q Not Given TIDWM JANET Protocol Metformin HCl 500 mg 12/07/19 08:00 12/11/19 08:01 Glucophage BY MOUTH 500 mg BIDWM JANET Administration Fluticasone/Salmeterol 2 puff 12/07/19 08:00 12/11/19 08:24 Advair Hfa 115-21 Mcg Inhaler (*Sp) INHALATION 2 puff Q12HRT JANET Administration Valsartan 80 mg 12/10/19 09:00 12/11/19 08:02 Diovan PO 80 mg DAILY JANET Administration Radiology Results:
[2019-12-11 11:34] LABS: Glucose Point of Care 106 (65-105)
--- NOTE | 2019-12-11 11:45 | PM.DS ---
DS: Admitting Diagnosis Admitting Diagnosis Admitting Diagnosis: Orthostatic hypotension/syncope/nasal bone fractur DS: Discharge Diagnosis Discharge Diagnosis (1) Syncope and collapse: Code(s): R55 - Syncope and collapse Status: Acute Assessment and Plan: r/o cardiogenic vs. vasovagal - Admit to med-surg for observation, telemetry, fall precautions, ambulate with assistance. Check orthostatics. IV hydration overnight. Check TSH w/ reflex T4, Echocardiogram. 12/10/19 13:51 patient is 84 female with history coronary artery disease pacemaker dependent while in her kitchen patient suddenly fair and landed on the floor sustained mild fracture of the nasal bone,called her daughter and patient was brought to the emergency department for further evaluate, patient denies any his associates some her chest pain palpitation or dizziness prior to fall, patient is on Eliquis, patient had a symptoms with complaint weakness and numbness in upper extremity yesterday CT scan of the head was negative for any acute disease, patient is seen her cardiology, pacemaker was integrated and and is functioning normally, patient is being gently hydrated, today her symptoms much improved patient was able to move around was able to use toilet without months help, today patient HH is trending down and her stool is positive for hemocclt, patient was seen by GI and was taken to GI lab today and had a EGD which was essentially normal did not show any source of bleeding, had a colonoscopy patient does have some polyps there was no source of bleeding, polyps were excised and biopsied, patient clinically stable per GI will resume Eliquis in 2 weeks, will monitor patient over will be 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 (2) Fracture, nasal: Code(s): S02.2XXA - Fracture of nasal bones, initial encounter for closed fracture Status: Acute Assessment and Plan: Minimally displaced. Continue supportive care. Consider referral to plastic surgery. (3) Contusion of forearm, right: Code(s): S50.11XA - Contusion of right forearm, initial encounter Status: Acute Assessment and Plan: No acute fracture on xrays. Continue supportive care, pain control as needed. (4) Laceration of nose: Code(s): S01.21XA - Laceration without foreign body of nose, initial encounter Status: Acute Assessment and Plan: The patient's laceration has been sutured in the ER. (5) Normocytic anemia: Code(s): D64.9 - Anemia, unspecified Status: Acute Assessment and Plan: No signs of acute blood loss. Monitor H/H, transfuse prn. (6) Transaminitis: Code(s): R74.0 - Nonspecific elevation of levels of transaminase and lactic acid dehydrogenase [LDH] Status: Chronic Assessment and Plan: Chronic transaminits may be secondary to fatty liver disease. Monitor LFTs. (7) CKD (chronic kidney disease) stage 3, GFR 30-59 ml/min: Code(s): N18.3 - Chronic kidney disease, stage 3 (moderate) Status: Chronic Assessment and Plan: Renal function appears to be at baseline. Monitor renal function and urine output. (8) Atrial fibrillation: Qualifiers: Atrial fibrillation type: unspecified Qualified Code(s): I48.91 - Unspecified atrial fibrillation Code(s): I48.91 - Unspecified atrial fibrillation Status: Chronic Assessment and Plan: Continue beta lindy and Eliquis for anticoagulation. (9) COPD (chronic obstructive pulmonary disease): Qualifiers: COPD type: unspecified COPD Qualified Code(s): J44.9 - Chronic obstructive pulmonary disease, unspecified Code(s): J44.9 - Chronic obstructive pulmonary disease, unspecified Status: Chronic Assessment and Plan: continue bronchodilators. (10) Diabetes mellitus: Qualifiers: Diabetes mellitus type: type 2 Diabetes mellitus fci
== END 2019-12-11 14:00 ==
LOC: ANHED 18:23 → ANH3MED 18:51
PROVIDERS: Family Medicine; Internal Medicine Cardiovascular Disease; Internal Medicine Gastroenterology; Admitting Provider Internal Medicine; Emergency Provider Emergency Medicine; PCP Internal Medicine; Visit Provider Family Medicine
PROC: 0DJ08ZZ Inspection of Upper Intestinal Tract, Via Natural or Artificial Opening Endoscopic (ICD-10-PCS; CPT 43235; principal; 2019-12-10 09:00)
DX: I95.1 Orthostatic hypotension (principal); Z20.828 Contact with and (suspected) exposure to other viral communicable diseases; S01.21XA Laceration without foreign body of nose, initial encounter; S02.2XXA Fracture of nasal bones, initial encounter for closed fracture; S50.11XA Contusion of right forearm, initial encounter; D64.9 Anemia, unspecified; D12.2 Benign neoplasm of ascending colon; E78.2 Mixed hyperlipidemia; E11.22 Type 2 diabetes mellitus with diabetic chronic kidney disease; I48.91 Unspecified atrial fibrillation; I12.9 Hypertensive chronic kidney disease with stage 1 through stage 4 chronic kidney disease, or unspecified chronic kidney disease; J44.9 Chronic obstructive pulmonary disease, unspecified; K64.8 Other hemorrhoids; N18.3 Chronic kidney disease, stage 3 (moderate); R74.0 Nonspecific elevation of levels of transaminase and lactic acid dehydrogenase [LDH]; Z95.0 Presence of cardiac pacemaker; Z79.01 Long term (current) use of anticoagulants
CPT/HCPCS: 45385; 43235; 12013; 36415; 36430; 70450; 70486; 71045; 73090; 74177; 80048; 80076; 81003; 82274; 83735; 84443; 84484; 85014; 85018; 85025; 85027; 85610; 85730; 86850; 86900; 86901; 86923; 87635; 88305; 93005; 93306; 94640; 96360; 96361; 96365; 96366; 96375; 96376; 97110; 97161; 97165; 97530; 97535; 99285; A9270; C9803; G0378; J0131; J2704; J7030; J7050; J7120; P9016; Q9967; U0003

== ENCOUNTER 2020-01-01 15:42 | Outpatient (CLI) | payer MEDICARE, SELFPAY ==
--- NOTE | ~2020-01-01 | US_ITS ---
EXAMINATION:US venous doppler LE RT INDICATION:Localized leg edema TECHNIQUE: Multiple grayscale, color flow and Doppler images of the right lower extremity deep venous systems were obtained and reviewed. COMPARISON:No prior studies for comparison. FINDINGS: The common femoral, superficial femoral and popliteal veins demonstrate normal respiratory variation, augmentation and compressibility. Color flow is also seen within the posterior tibial, pe roneal, greater saphenous and profunda veins. IMPRESSION: 1: No lower extremity deep venous thrombosis. Reviewed, dictated and finalized at location A.
== END 2020-01-01 15:43 | disposition home or self-care (01) ==
PROVIDERS: PCP Internal Medicine; Visit Provider Internal Medicine Cardiovascular Disease
DX: R60.0 Localized edema (principal)
CPT/HCPCS: 93971

== ENCOUNTER 2020-01-03 12:31 | Outpatient (CLI) | payer MEDICARE, SELFPAY ==
[2020-01-03 13:27] LABS: Basophils Percent Auto 0.8 % (0.2-1.2); Eosinophils Absolute Auto 0.4 K/mm3 (0-0.3); Eosinophils Percent Auto 7.6 % (0-4.4); Hematocrit 38.5 % (37.0-47.0); Hemoglobin 11.9 g/dL (12.0-15.0); Immature Granulocyte Absolute 0.01 K/mm3 (0.00-0.031); Immature Granulocyte Percent A 0.2 % (0-0.5); Lymphocytes Absolute Auto 1.55 K/mm3 (0.9-3.2); Lymphocytes Percent Auto 30.1 % (18.3-44.2); Mean Corpuscular HGB Conc 30.9 g/dl (32-36); Mean Corpuscular Hemoglobin 27.9 pg (26-34); Mean Corpuscular Volume 90.4 fl (80-100); Mean Platelet Volume 12.4 fl (7.4-10.4); Monocytes Absolute Auto 0.5 K/mm3 (0.1-0.6); Monocytes Percent Auto 9.5 % (2.6-8.5); Neutrophils Absolute Auto 2.7 K/mm3 (1.3-6.7); Neutrophils Percent Auto 51.8 % (45.5-73.1); Platelet Count Result 213 k/mm3 (150-375); Red Blood Count 4.26 M/mm3 (4.2-5.4); Red Cell Distribution Width 13.5 % (11.5-14.5); White Blood Count 5.2 K/mm3 (4.5-10.0)
[2020-01-03 13:39] LABS: Alanine Aminotransferase 16 U/L (4-35); Alkaline Phosphatase 95 U/L (38-126); Anion Gap 5 mmol/L (8-16); Aspartate Amino Transferase 35 U/L (14-36); Bilirubin,Total 1.1 mg/dL (0.2-1.3); Blood Urea Nitrogen 25 mg/dL (7-17); Calcium 9.5 mg/dL (8.4-10.2); Carbon Dioxide 32 mmol/L (22-30); Chloride 99 mmol/L (98-107); Estimated Glomerular Filt Rate 60; Glucose 88 mg/dL (65-105); Potassium 4.4 mmol/L (3.4-5.0); Sodium 136 mmol/L (137-145)
== END 2020-01-03 12:32 | disposition home or self-care (01) ==
LOC: ANHLAB 12:33
PROVIDERS: PCP Internal Medicine; Visit Provider Internal Medicine
DX: D64.9 Anemia, unspecified (principal); E11.65 Type 2 diabetes mellitus with hyperglycemia
CPT/HCPCS: 36415; 80053; 85025

== ENCOUNTER 2020-03-03 10:55 | Outpatient (CLI) | payer MEDICARE, SELFPAY ==
--- NOTE | 2020-03-03 11:00 | ECHO_ITS ---
Patient Info Name: Marcia Barroso Age: 84 years : 1935 Gender: Female Ht: 62 in Wt: 177 lbs BSA: 1.91 m2 HR: 70 bpm BP: 133 / 80 mmHg Heart Rhythm: Sinus Rhythm Technical Quality: Fair Exam Date: 03/03/2020 11:08 AM Exam Location: [facility] Patient Status: Outpatient Admit Date: 03/03/2020 Staff Ordering Physician: Gurmeet Foster MD Freight Loading Supervisor: Gustavo Howe RDCS Attending Provider: Gurmeet Foster MD Exam Type: CA echo doppler color flow Study Info Indications R06.01 - Orthopnea I31.3 - Pericardial effusion (noninflammatory) Complete two-dimensional, color flow and Doppler transthoracic echocardiogram is performed. History/Risk Factors Orthopnea and pericardial effusion. Summary 1. Complete two-dimensional, color flow and Doppler transthoracic echocardiogram is performed. 2. Left ventricular chamber dimension is normal. 3. Left ventricular systolic function is normal, estimated at 55-60%. 4. The left ventricular diastolic function is abnormal. 5. E/e' 11 is mildly elevated. 6. Linear artifact in right ventricle suggestive of catheter(s), pacemaker lead(s), or ICD lead(s). 7. Right ventricular systolic function is reduced based on TAPSE 1.4 cm. 8. Left atrial chamber dimension is moderately enlarged. 9. Linear artifact in the right atrium suggestive of catheter(s), pacemaker lead(s), or ICD lead(s). 10. There is mild aortic valve sclerosis. 11. The mitral valve has moderately calcified annulus. 12. There is mild mitral valve regurgitation. 13. There is mild tricuspid valve regurgitation. 14. No pulmonary hypertension, estimated pulmonary arterial systolic pressure is 30 mmHg. 15. Large loculated basal posterior pericardial effusion at 2.3 cm. Left Ventricle E/e' 11 is mildly elevated. Left ventricular chamber dimension is normal. Left ventricular systolic function is normal, estimated at 55-60%. The left ventricular diastolic function is abnormal. Right Ventricle Linear artifact in right ventricle suggestive of catheter(s), pacemaker lead(s), or ICD lead(s). Right ventricular systolic function is reduced based on TAPSE 1.4 cm. Right ventricular chamber dimension is normal. Left Atria Left atrial chamber dimension is moderately enlarged. Right Atria Linear artifact in the right atrium suggestive of catheter(s), pacemaker lead(s), or ICD lead(s). Right atrial chamber dimension is normal. Aortic Valve The aortic valve is probable trileaflet. There is mild aortic valve sclerosis. There is no aortic valve stenosis. There is no aortic valve regurgitation. Pulmonic Valve There is no pulmonic regurgitation. Mitral Valve The mitral valve has moderately calcified annulus. There is no mitral valve stenosis. There is mild mitral valve regurgitation. Tricuspid Valve There is mild tricuspid valve regurgitation. No pulmonary hypertension, estimated pulmonary arterial systolic pressure is 30 mmHg. Pericardium/Pleural Large loculated basal posterior pericardial effusion at 2.3 cm. Inferior Vena Cava Dilated inferior vena cava with >50% collapse upon inspiration consistent with normal right atrial pressure, 5 mmHg. Aorta The aortic root size at the sinus of Valsalva is normal. Left Ventricular Outflow Tract Name Value Normal
== END 2020-03-03 10:56 | disposition home or self-care (01) ==
LOC: ANHCARD 10:57
PROVIDERS: PCP Internal Medicine; Visit Provider Internal Medicine
DX: I31.3 Pericardial effusion (noninflammatory) (principal); R06.01 Orthopnea; I34.0 Nonrheumatic mitral (valve) insufficiency; I07.1 Rheumatic tricuspid insufficiency
CPT/HCPCS: 93306

== ENCOUNTER → 2020-03-09 13:12 | Outpatient (CLI) | payer MEDICARE, SELFPAY ==
--- NOTE | ~2020-03-09 | CT_ITS ---
EXAMINATION: CT chest wo con DATE: 03/09/2020 13:30 INDICATION: Pericardial effusion TECHNIQUE: Computed tomography (CT) of the chest was performed without intravenous contrast. Addition al 3D reconstructions utilizing coronal maximum intensity projection (MIP) were performed. Automated exposure control and iterative reconstruction technique were employed. The dose-length product was 42 6.75 mGy-cm. COMPARISON: None FINDINGS: Pleural parenchymal scarring with several foci of high attenuation in the posterior basilar segment o f the right lower lobe which could represent calcified pleural plaque, sequela of old granulomatous d isease or potentially aspirated barium. Normal developmental variant azygos lobe and fissure. Mild di scoid atelectasis in the right upper lobe. Tiny calcified nodules in the left upper lobe consistent w ith old granulomatous disease. Cardiomegaly with right atrial enlargement. Dual-lead cardiac pacemake r with lead tips near the apex of the right ventricle and in a coronary vein overlying the lateral wa ll of the left ventricle having traversed the coronary sinus. Atherosclerotic coronary artery calcifi cations. Unchanged moderate sized pericardial effusion. Thoracic aorta is normal in caliber. Normal v ariant retroesophageal aberrant right subclavian artery. No pathologically enlarged thoracic lymphade nopathy. There are bridging osteophytes at multiple levels in the spine, consistent with diffuse idio pathic skeletal hyperostosis (DISH). IMPRESSION: 1. Cardiomegaly with unchanged moderate sized pericardial effusion. Reviewed, dictated and finalized at location A. 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
== END ==
PROVIDERS: Visit Provider Internal Medicine Cardiovascular Disease
DX: I31.3 Pericardial effusion (noninflammatory) (principal); R42 Dizziness and giddiness; I51.7 Cardiomegaly
CPT/HCPCS: 71250

== ENCOUNTER 2020-07-15 13:01 | Outpatient (CLI) | payer MEDICARE, SELFPAY ==
--- NOTE | 2020-07-15 13:27 | ECHO_ITS ---
Patient Info Name: Marcia Barroso Age: 85 years : 1935 Gender: Female Ht: 62 in Wt: 177 lbs BSA: 1.91 m2 HR: 87 bpm BP: 147 / 86 mmHg Technical Quality: Good Exam Date: 07/15/2020 1:29 PM Exam Location: [facility] Patient Status: Outpatient Admit Date: 07/15/2020 Staff Ordering Physician: Osmel Vogt DO Mining Captain: Jud Lunsford RDCS Attending Provider: Osmel Vogt DO Referring Physician: Sin MEJIA; Exam Type: CA echo doppler color flow Study Info Indications - pericardial effusion Complete two-dimensional, color flow and Doppler transthoracic echocardiogram is performed. Summary 1. Complete two-dimensional, color flow and Doppler transthoracic echocardiogram is performed. 2. Left ventricular chamber dimension is normal. 3. Left ventricular systolic function is normal, estimated at 60-65%. 4. The left ventricular diastolic function is abnormal. 5. E/e' 21 is elevated. 6. Linear artifact in right ventricle suggestive of catheter(s), pacemaker lead(s), or ICD lead(s). 7. Left atrial chamber dimension is severely enlarged. 8. Right atrial chamber dimension is moderately enlarged. 9. Linear artifact in the right atrium suggestive of catheter(s), pacemaker lead(s), or ICD lead(s). 10. The mitral valve has moderately calcified annulus. 11. There is mild mitral valve regurgitation. 12. No pulmonary hypertension, estimated pulmonary arterial systolic pressure is 28 mmHg. 13. There is large loculated posterior pericardial effusion measuring up to 2.8 cm in parasternal long axis view. Trace pericardial effusion in other areas around the heart. No cardiac tamponade. Left Ventricle E/e' 21 is elevated. Left ventricular chamber dimension is normal. Left ventricular systolic function is normal, estimated at 60-65%. The left ventricular diastolic function is abnormal. Right Ventricle Linear artifact in right ventricle suggestive of catheter(s), pacemaker lead(s), or ICD lead(s). Right ventricular chamber dimension is normal. Right ventricular systolic function is normal. Left Atria Left atrial chamber dimension is severely enlarged. Right Atria Linear artifact in the right atrium suggestive of catheter(s), pacemaker lead(s), or ICD lead(s). Right atrial chamber dimension is moderately enlarged. Aortic Valve The aortic valve is trileaflet. There is no aortic valve stenosis. There is no aortic valve regurgitation. Pulmonic Valve There is no pulmonic regurgitation. Mitral Valve The mitral valve has moderately calcified annulus. There is no mitral valve stenosis. There is mild mitral valve regurgitation. Tricuspid Valve There is no tricuspid valve regurgitation. No pulmonary hypertension, estimated pulmonary arterial systolic pressure is 28 mmHg. Pericardium/Pleural There is large loculated posterior pericardial effusion measuring up to 2.8 cm in parasternal long axis view. Trace pericardial effusion in other areas around the heart. No cardiac tamponade. Inferior Vena Cava Normal inferior vena cava with >50% collapse upon inspiration consistent with normal right atrial pressure, 5 mmHg. Aorta The aortic root size at the sinus of Valsalva is normal. Left Ventricular Outflow Tract Name Value Normal LVOT 2D
== END 2020-07-15 13:02 | disposition home or self-care (01) ==
PROVIDERS: PCP Internal Medicine; Visit Provider Internal Medicine Cardiovascular Disease
DX: I31.3 Pericardial effusion (noninflammatory) (principal); I51.7 Cardiomegaly; R93.1 Abnormal findings on diagnostic imaging of heart and coronary circulation
CPT/HCPCS: 93306

== ENCOUNTER 2020-09-24 15:33 | Observation (INO) | payer MEDICARE, SELFPAY ==
--- NOTE | ~2020-09-24 | XR_ITS ---
EXAMINATION: XR chest 2V EXAM DATE: 09/24/2020 16:04 INDICATION: Cough and shortness of breath. TECHNIQUE: Frontal and lateral projections of the chest obtained and reviewed. Comparison is made to prior examination from 12/06/2019. FINDINGS: There is a dual lead pacemaker/AICD seen with leads projecting over the expected locations of the right atrial appendage and right ventricle. There is cardiomegaly. Small right pleural effusi on. There is no pneumothorax suspected. No acute airspace disease. There are bony degenerative change s. There is aortic arteriosclerosis. There is aortic arteriosclerosis. IMPRESSION: 1. Small right pleural effusion. 2. Cardiomegaly unchanged. Reviewed, dictated and finalized at location B.
--- NOTE | 2020-09-24 15:34 | ECG_ITS ---
Measurements Intervals [place] Rate: 69 P: ID: 0 QRS: 231 QRSD: 128 T: 58 QT: 450 QTc: 485 Interpretive Statements ELECTRONIC VENTRICULAR PACEMAKER BASELINE ARTIFACT- I, II, AVR, AVL, V1-V3 NO FURTHER INTERPRETATION IS POSSIBLE ATYPICAL ECG Electronically Signed On 09-24-2020 16:03:23 CDT by Osmel Vogt D.O.
[2020-09-24 15:42] VITALS: BP 154/77; PULSE 81; RESP 21; TEMP 36.7; O2SAT 100
[2020-09-24 15:45] VITALS: PULSE 81
[2020-09-24 15:50] VITALS: O2SAT 99
--- NOTE | 2020-09-24 15:57 | PC.NURSE ---
Pt to XRAY via stretcher.
[2020-09-24 16:05] LABS: Basophils Percent Auto 0.4 % (0.2-1.2); Eosinophils Absolute Auto 0.2 K/mm3 (0-0.3); Eosinophils Percent Auto 3.1 % (0-4.4); Hematocrit 39.5 % (37.0-47.0); Hemoglobin 12.3 g/dL (12.0-15.0); Immature Granulocyte Absolute 0.02 K/mm3 (0.00-0.031); Immature Granulocyte Percent A 0.3 % (0-0.5); Lymphocytes Absolute Auto 1.63 K/mm3 (0.9-3.2); Lymphocytes Percent Auto 23.1 % (18.3-44.2); Mean Corpuscular HGB Conc 31.1 g/dl (32-36); Mean Corpuscular Hemoglobin 27.2 pg (26-34); Mean Corpuscular Volume 87.2 fl (80-100); Mean Platelet Volume 11.8 fl (7.4-10.4); Monocytes Absolute Auto 0.5 K/mm3 (0.1-0.6); Monocytes Percent Auto 6.5 % (2.6-8.5); Neutrophils Absolute Auto 4.7 K/mm3 (1.3-6.7); Neutrophils Percent Auto 66.6 % (45.5-73.1); Platelet Count Result 172 k/mm3 (150-375); Red Blood Count 4.53 M/mm3 (4.2-5.4); Red Cell Distribution Width 13.2 % (11.5-14.5); White Blood Count 7.1 K/mm3 (4.5-10.0)
[2020-09-24 16:16] LABS: Anion Gap 6 mmol/L (8-16); Blood Urea Nitrogen 22 mg/dL (7-17); Calcium 9.4 mg/dL (8.4-10.2); Carbon Dioxide 31 mmol/L (22-30); Chloride 102 mmol/L (98-107); Estimated CRCL calculation 41 ml/min; Estimated Glomerular Filt Rate 60; Glucose 100 mg/dL (65-105); Potassium 4.1 mmol/L (3.4-5.0); Sodium 139 mmol/L (137-145)
--- NOTE | 2020-09-24 16:32 | ED.SOB ---
HPI - SOB/Dyspnea General Chief Complaint: Shortness of Breath/Dyspnea Stated Complaint: SOB Time Seen by Provider: 09/24/20 16:02 Source: patient, family, RN notes reviewed and old records reviewed Mode of arrival: ambulatory Limitations: no limitations History of Present Illness HPI Narrative: This is an 85 year old female with history of COPD/asthma, CHF, pacemaker who presents for evaluation of shortness of breath. She states she has been short of breath for 2 days. She notices her shortness of breath while she was doing laundry, and she states she felt better at rest. She denies associated fever, chest pain, or leg swelling. She also notices she has a chronic cough due to postnasal drainage. She reports she has noticed her cough on the way to ER. She states she feels tickle in her throat and then she has to cough. She uses Flonase for her chronic sinus disease. She states she had a pericardial window performed 1 months ago and she was told she should not get any more fluid around her heart. Related Data Home Medications Medication Instructions Recorded Confirmed albuterol sulfate 90 mcg/actuation 1 puff INHALATION Q4H PRN 03/05/19 09/24/20 aerosol inhaler cholecalciferol (vitamin D3) 25 25 mcg PO DAILY 10/16/19 09/24/20 mcg (1,000 unit) capsule calcium carbonate-vitamin D3 [All 600 tablet PO DAILY 09/24/20 09/24/20 Day Calcium] fluticasone propionate 1 spray NASAL Q4H PRN 09/24/20 09/24/20 metformin 500 mg PO BID 09/24/20 09/24/20 omega-3 fatty acids [Fish Oil] 500 mg PO DAILY 09/24/20 09/24/20 triamcinolone acetonide 1 applic TOPICAL Q12H 09/24/20 09/24/20 valsartan 160 mg PO BID 09/24/20 09/24/20 Allergies Allergy/AdvReac Type Severity Reaction Status Date / Time codeine Allergy Intermediate tachycardia Verified 09/24/20 19:50 aspirin Allergy Mild Vomiting Verified 09/24/20 19:50 Review of Systems Review of Systems: All systems reviewed & are unremarkable except as noted in HPI and below Constitutional: Constitutional: Denies chills and Denies fever(s) ENT: Reports nasal congestion Cardiovascular: Cardiovascular: Denies chest pain and Denies radiating jaw, neck or arm pain Respiratory: Respiratory: Reports cough, Reports dyspnea and Denies wheezing Gastrointestinal: Gastrointestinal: Denies abdominal pain, Denies nausea and Denies vomiting [facility] Past Medical History Medical History (Updated 09/25/20 @ 00:01 by Davina Lal MD) Arthritis Asthma Atrial fibrillation Broken ankle COPD (chronic obstructive pulmonary disease) CVA (cerebral vascular accident) DDD (degenerative disc disease) Diabetes mellitus A1C=5.8=06/19/19 Diastolic dysfunction Dyslipidemia Glaucoma Hypertension LBBB (left bundle branch block) Obesity (BMI 30.0-34.9) Osteopenia after menopause Bilateral femoral neck osteopenia noted on DEXA scan May 2018 Pacemaker Paroxysmal atrial fibrillation With synchronized cardioversion February 2018 with subsequent recurrence of atrial fibrillation with polymorphic tachyarrhythmias requiring pacemaker placement and AV bala ablation at [facility] Pneumonia Polio With residual right arm weakness Rheumatic fever With history of moderate to severe tricuspid valve regurgitation and moderate mitral valve regurgitation (2017) with improved valve function mild regurgitation of both valves on last echo September 2018 Right arm weakness 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
[2020-09-24 16:42] LABS: INR 1.1; Prothrombin Time 14.9 Seconds (11.1-14.7)
[2020-09-24 16:43] LABS: Partial Thromboplastin Time 47.3 SECONDS (22.3-36.8)
[2020-09-24 16:45] LABS: D Dimer 0.36 ug/mL (<0.48)
[2020-09-24 16:52] VITALS: PULSE 80; RESP 12; O2SAT 99
[2020-09-24 16:52] LABS: NT Pro B Type Natriuretic Pept 2770 pg/mL (5-100); Troponin I < 0.012 ng/mL (0.000-0.034)
[2020-09-24 17:00] LABS: Alveolar/Arterial O2 Gradient 32.2 mmHg; Base Excess ABG 2.3 mEq/l (+/-2.0); Carboxyhemoglobin 0.5 % THb (0-2.0); Fractional Inspired Oxygen 21 %; HCO3 ABG 26.1 mEq/l (22.0-26.0); Methemoglobin ABG 0.2 %THb (0-1.5); Oxygen Content ABG 17.3 %vol (16.0-22.0); Oxygen Saturation ABG 95.3 % (95.0-100.0); PCO2 ABG 37.9 mmHg (35.0-45.0); PO2 ABG 72.1 mmHg (80.0-100.0); PO2 FiO2 Ratio Arterial Blood 3.43 %; Reduced Hemoglobin 5.3 %THb (0-5.0); Total Hemoglobin 13.1 g/dL (12.0-18.0); pH ABG 7.456 (7.350-7.450)
[2020-09-24 17:01] LABS: Device ROOM AIR; Site Drawn LEFT RADIAL
--- NOTE | 2020-09-24 17:17 | PC.NURSE ---
Pt on 95% on room air, walked to restroom and O2 sat went to 87% on room air. When asked if pt felt SOB, pt states A little bit.
[2020-09-24 18:17] VITALS: BP 105/59; PULSE 70; RESP 18; O2SAT 95
--- NOTE | 2020-09-24 19:45 | PC.NURSE ---
This patient, Marcia Barroso, was admitted to [facility] Surg Room 306-01. Patient/family oriented to hospital policies and general routines including ID bracelet, bed and alarms, visiting hours, pain management, procedures, bathroom and other care routines, personal items, smoking policy, room service/diet, and visiting hours. Information on how to activate the Rapid Response Team has been discussed. Patient/Family are encouraged to report perceived risks to care and to ask questions if they do not understand what they are told or what they should do.
[2020-09-24 19:50] VITALS: BP 132/74; PULSE 73; RESP 16; TEMP 36.1; O2SAT 100; BMI 32.5
--- NOTE | 2020-09-24 20:38 | PM.IMHP ---
H&P: HPI History of Present Illness Date/Time: 09/24/20 22:38 Chief Complaint: Shortness of breath Narrative: 85-year-old female with past medical history of diastolic dysfunction, dual-chamber pacemaker, hypertension, atrial fibrillation, and recent cardiac window due to large pericardial effusion who presented to the ER with dyspnea on exertion for 2 days. The patient reports that she enters her blood pressure in Accu-Cheks into a tablet system is monitor by home health provider. Her blood pressures had been a little bit elevated. The nurses called to discuss her blood pressures with her and patient had told him that she was having some shortness of breath with exertion. The patient reports that she tries to remain independent and does her own laundry and washes dishes. She reports that if she is resting her shortness of breath is better. She denies any orthopnea. After she talked to the provider she was planning on just repeating her blood pressure a little bit later. But after discussing her symptoms with her daughter she decided to come to the ER for evaluation. When she arrived to the ER patient was having normal oxygen saturations at rest. However when she ambulated to the bathroom her oxygen saturations dropped down to 87%. She does have an occasional cough that she associates with postnasal drip. She did have onset of cough on her way to the ER but this has since resolved. She has not noticed any loss of sense of taste or smell. She has not received the COVID vaccine. She denies any known recent ill contacts. She lives with her daughter and 4 grand children. She has not noticed any wheezing, orthopnea or paroxysmal nocturnal dyspnea. She does not snore. She has not noticed any lower extremity edema. She is on Bumex daily. She is reluctant to take further diuretics because she has had episodes of dehydration in the past. She denies any change in urinary frequency. She does have difficulty with urge and stress incontinence at times. She has not been having any dysuria or hematuria. She did have for 5 episodes of watery diarrhea earlier today. She denies any abdominal pain. She had a pericardial window performed last month at [facility]. She reports that she has been feeling her usual state of health until 2 days ago. Her incision has healed nicely in the scab fell off yesterday. Review of Systems Review of Systems: Narrative: 12 systems were reviewed with pertinent positives and negatives per HPI. Except as documented in the HPI, all other systems were reviewed and are negative. COUNT INCLUDES THE [facility] Past Medical History Medical History (Updated 09/25/20 @ 04:12 by Tere Higginbotham DO) Arthritis Asthma Atrial fibrillation Broken ankle COPD (chronic obstructive pulmonary disease) CVA (cerebral vascular accident) DDD (degenerative disc disease) Diabetes mellitus 04/17/2020 hemoglobin A1c 5.9 Diastolic dysfunction Dyslipidemia Glaucoma Hypertension LBBB (left bundle branch block) Obesity (BMI 30.0-34.9) Osteopenia after menopause Bilateral femoral neck osteopenia noted on DEXA scan May 2018 Pacemaker Paroxysmal atrial fibrillation With synchronized cardioversion February 2018 with subsequent recurrence of atrial fibrillation with polymorphic tachyarrhythmias requiring pacemaker placement and AV bala ablation at [facility] Pneumonia Polio With residual right arm weakness Rheumatic fever With history of moderate to severe tricuspid valve regurgitation and moderate mitral valve regurgitation (2017) with improved valve function mild regurgitation of both valves on last echo September 2018 Right arm weakness 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
[2020-09-24] MEDS: FUROSEMIDE INJ 40 MG/4 ML VIAL IV PUSH (21:41)
[2020-09-24] MEDS: ATORVASTATIN 10 MG TABLET PO (21:41)
[2020-09-24] MEDS: VALSARTAN 160 MG TABLET PO (21:41)
[2020-09-24] MEDS: APIXABAN 2.5 MG TABLET PO (21:41)
[2020-09-24] MEDS: carvediloL 6.25 MG TABLET PO (21:41)
[2020-09-25] VITALS (13 sets, daily range): BP systolic 116–148; BP diastolic 60–86; PULSE 68–100; RESP 14–18; TEMP 36.1–37; O2SAT 96–100
[2020-09-25 08:26] LABS: Glucose Point of Care 84 mg/dl (65-105)
[2020-09-25] MEDS: FLUTICASONE/SALMETEROL 115-21 MCG INHALER 1 PUFF 2 PUFF INHALATION ×2 (08:35→20:09)
[2020-09-25] MEDS: CHOLECALCIFEROL 1,000 UNITS TABLET 1000 UNITS PO (09:27)
[2020-09-25] MEDS: APIXABAN 2.5 MG TABLET PO ×2 (09:27→16:45)
[2020-09-25] MEDS: carvediloL 6.25 MG TABLET PO ×2 (09:27→20:06)
[2020-09-25] MEDS: VALSARTAN 160 MG TABLET PO ×2 (09:27→20:09)
[2020-09-25] MEDS: POTASSIUM CHLORIDE 20 MEQ TABLET.ER PO (09:27)
[2020-09-25] MEDS: OMEGA 3 POLYUNSAT FATTY ACIDS 1 GM CAP PO (09:27)
[2020-09-25] MEDS: TRIAMCINOLONE ACET 0.1% CREAM 15 GM TUBE 1 APPLIC TOPICAL ×2 (09:28→20:06)
[2020-09-25] MEDS: BUMETANIDE 1 MG TABLET PO (09:28)
[2020-09-25 11:56] LABS: Glucose Point of Care 89 mg/dl (65-105)
--- NOTE | 2020-09-25 13:01 | P.PNIM_ITS ---
Progress Note: A&P Assessment and Plan (1) Hypoxia: Code(s): R09.02 - Hypoxemia Status: Acute Assessment and Plan: * The patient has dyspnea on exertion with hypoxia on exertion. * Patient also has a history of asthma, CHF, and COPD * Continue albuterol, bumetanide 1mg PO daily for fluid * SPO2 spot check * Keep saturation above 92% * Supplemental oxygen to maintain saturation (2) MARRERO (dyspnea on exertion): Code(s): R06.00 - Dyspnea, unspecified Status: Acute Assessment and Plan: * See above (3) CHF (congestive heart failure): Qualifiers: Heart failure chronicity: chronic Heart failure type: diastolic Qualified Code(s): I50.32 - Chronic diastolic (congestive) heart failure Code(s): I50.9 - Heart failure, unspecified Status: Acute Assessment and Plan: * BNP 2770 * Carvedilol 6.25 PO Q12hr and valsartan 160mg PO Q12hr * Continue home bumex 1mg PO daily * Strict I&Os * One time 40mg IV lasix * may consider one more dose to see if it helps * Monitor and trend blood pressure (4) Diabetes mellitus: Qualifiers: Diabetes mellitus complication status: without complication Diabetes mellitus termite renewal inspector insulin use: without termite renewal inspector use Diabetes mellitus type: type 2 Qualified Code(s): E11.9 - Type 2 diabetes mellitus without complications Code(s): E11.9 - Type 2 diabetes mellitus without complications Status: Acute Assessment and Plan: * Glucose 100 today * Sliding scale is ordered * ACHS * Hold home metformin * Adjust medications as needed (5) Pruritic dermatitis: Code(s): L29.9 - Pruritus, unspecified Status: Acute Assessment and Plan: * Continue Triamcinolone acetonide topical Q12hr (6) Hypertension: Qualifiers: Hypertension type: essential hypertension Qualified Code(s): I10 - Essential (primary) hypertension Code(s): I10 - Essential (primary) hypertension Status: Chronic Assessment and Plan: * Current blood pressure is 116/86 * Trend blood pressure * Continue home Carvedilol 6.25 PO Q12hr, and valsartan 160mg PO BID * Adjust medications as needed Time Spent With Patient Time with patient: Greater than 35 minutes Subjective Date/time seen: 09/25/20 09:15 Interval history: 85-year-old female with past medical history of diastolic dysfunction, dual-chamber pacemaker, hypertension, atrial fibrillation, and recent cardiac window due to large pericardial effusion who presented to the ER with dyspnea on exertion for 2 days. Today patient stated that she is doing better and is able to breathe. She did say that her head is spinning when she gets up and that she was told that her blood pressure also decreases when all of that happens. She stated that the diarrhea is better. She denies a cough and stated that when she does have a cough that it is normally productive and she gets a lot up with it. She said that she was told she gained weight, however was unaware of really how much weight she gained. At this time she was sitting up on the side of the bed getting ready to eat. Patient denies chest pain, nausea, vomiting, abdominal pain, urination dysfunction including painful or burning, numbness and tingling, sweats, chills, or falls. She did say that she is very itchy and red around he neck which she said was normal when she has anything done with her heart. Review of Systems
--- NOTE | 2020-09-25 13:01 | PM.IMPN ---
Progress Note: A&P Assessment and Plan (1) Hypoxia: Code(s): R09.02 - Hypoxemia Status: Acute Assessment and Plan: The patient has dyspnea on exertion with hypoxia on exertion. Patient also has a history of asthma, CHF, and COPD Continue albuterol, bumetanide 1mg PO daily for fluid SPO2 spot check Keep saturation above 92% Supplemental oxygen to maintain saturation (2) MARRERO (dyspnea on exertion): Code(s): R06.00 - Dyspnea, unspecified Status: Acute Assessment and Plan: See above (3) CHF (congestive heart failure): Qualifiers: Heart failure chronicity: chronic Heart failure type: diastolic Qualified Code(s): I50.32 - Chronic diastolic (congestive) heart failure Code(s): I50.9 - Heart failure, unspecified Status: Acute Assessment and Plan: BNP 2770 Carvedilol 6.25 PO Q12hr and valsartan 160mg PO Q12hr Continue home bumex 1mg PO daily Strict I&Os One time 40mg IV lasix may consider one more dose to see if it helps Monitor and trend blood pressure (4) Diabetes mellitus: Qualifiers: Diabetes mellitus complication status: without complication Diabetes mellitus nursing home insulin use: without long term care pharmacist use Diabetes mellitus type: type 2 Qualified Code(s): E11.9 - Type 2 diabetes mellitus without complications Code(s): E11.9 - Type 2 diabetes mellitus without complications Status: Acute Assessment and Plan: Glucose 100 today Sliding scale is ordered ACHS Hold home metformin Adjust medications as needed (5) Pruritic dermatitis: Code(s): L29.9 - Pruritus, unspecified Status: Acute Assessment and Plan: Continue Triamcinolone acetonide topical Q12hr (6) Hypertension: Qualifiers: Hypertension type: essential hypertension Qualified Code(s): I10 - Essential (primary) hypertension Code(s): I10 - Essential (primary) hypertension Status: Chronic Assessment and Plan: Current blood pressure is 116/86 Trend blood pressure Continue home Carvedilol 6.25 PO Q12hr, and valsartan 160mg PO BID Adjust medications as needed Time Spent With Patient Time with patient: Greater than 35 minutes Subjective Date/time seen: 09/25/20 09:15 Interval history: 85-year-old female with past medical history of diastolic dysfunction, dual-chamber pacemaker, hypertension, atrial fibrillation, and recent cardiac window due to large pericardial effusion who presented to the ER with dyspnea on exertion for 2 days. Today patient stated that she is doing better and is able to breathe. She did say that her head is spinning when she gets up and that she was told that her blood pressure also decreases when all of that happens. She stated that the diarrhea is better. She denies a cough and stated that when she does have a cough that it is normally productive and she gets a lot up with it. She said that she was told she gained weight, however was unaware of really how much weight she gained. At this time she was sitting up on the side of the bed getting ready to eat. Patient denies chest pain, nausea, vomiting, abdominal pain, urination dysfunction including painful or burning, numbness and tingling, sweats, chills, or falls. She did say that she is very itchy and red around he neck which she said was normal when she has anything done with her heart. Review of Systems Review of Systems: All systems reviewed & are unremarkable except as noted in HPI and below Exam Const: General: cooperative, healthy appearing, no acute distress, well developed, alert and awake Nutritional Appearance: well nourished Orientation/consciousness: patient oriented x3 Limitations: no limitations HENMT: Head: normal to inspection Ears: hearing grossly normal bilaterally General nose exam: Normal external nose present Mouth: Yes Normal oral and palatal m
--- NOTE | 2020-09-25 14:09 | PCRCNOTE ---
Home O2 eval done, no home O2 needed at this time. Pt walked well in room.
[2020-09-25 17:22] LABS: Glucose Point of Care 90 mg/dl (65-105)
[2020-09-25 18:47] LABS: SARS-CoV-2 RNA PCR Negative
[2020-09-25] MEDS: ATORVASTATIN 10 MG TABLET PO (20:06)
[2020-09-25 22:09] LABS: Glucose Point of Care 83 mg/dl (65-105)
[2020-09-26 05:54] VITALS: BP 118/68; PULSE 71; RESP 18; TEMP 36.4; O2SAT 96
[2020-09-26 06:11] LABS: Hematocrit 39.3 % (37.0-47.0); Hemoglobin 12.3 g/dL (12.0-15.0); Mean Corpuscular HGB Conc 31.3 g/dl (32-36); Mean Corpuscular Hemoglobin 27.4 pg (26-34); Mean Corpuscular Volume 87.5 fl (80-100); Mean Platelet Volume 12.3 fl (7.4-10.4); Platelet Count Result 151 k/mm3 (150-375); Red Blood Count 4.49 M/mm3 (4.2-5.4); Red Cell Distribution Width 13.2 % (11.5-14.5); White Blood Count 4.8 K/mm3 (4.5-10.0)
[2020-09-26 06:20] LABS: Alanine Aminotransferase 20 U/L (4-35); Albumin Level 3.7 g/dL (3.5-5.1); Alkaline Phosphatase 59 U/L (38-126); Anion Gap 6 mmol/L (8-16); Aspartate Amino Transferase 30 U/L (14-36); Bilirubin,Total 1.1 mg/dL (0.2-1.3); Blood Urea Nitrogen 24 mg/dL (7-17); Calcium 9.1 mg/dL (8.4-10.2); Carbon Dioxide 31 mmol/L (22-30); Chloride 102 mmol/L (98-107); Estimated CRCL calculation 41 ml/min; Estimated Glomerular Filt Rate 60; Glucose 100 mg/dL (65-105); Potassium 3.7 mmol/L (3.4-5.0); Sodium 139 mmol/L (137-145)
[2020-09-26 08:00] VITALS: PULSE 74; RESP 18; O2SAT 96
[2020-09-26 08:05] LABS: Glucose Point of Care 99 mg/dl (65-105)
[2020-09-26] MEDS: VALSARTAN 160 MG TABLET PO (08:07)
[2020-09-26 08:08] VITALS: PULSE 74
[2020-09-26] MEDS: CHOLECALCIFEROL 1,000 UNITS TABLET 1000 UNITS PO (08:08)
[2020-09-26] MEDS: carvediloL 6.25 MG TABLET PO (08:08)
[2020-09-26] MEDS: BUMETANIDE 1 MG TABLET PO (08:09)
[2020-09-26] MEDS: OMEGA 3 POLYUNSAT FATTY ACIDS 1 GM CAP PO (08:09)
[2020-09-26] MEDS: APIXABAN 2.5 MG TABLET PO (08:09)
[2020-09-26] MEDS: POTASSIUM CHLORIDE 20 MEQ TABLET.ER PO (08:09)
[2020-09-26] MEDS: TRIAMCINOLONE ACET 0.1% CREAM 15 GM TUBE 1 APPLIC TOPICAL (08:09)
[2020-09-26] MEDS: FLUTICASONE/SALMETEROL 115-21 MCG INHALER 1 PUFF 2 PUFF INHALATION (08:10)
[2020-09-26] MEDS: FUROSEMIDE 40 MG TABLET PO (09:09)
--- NOTE | 2020-09-26 10:19 | P.DS_ITS ---
DS: Admitting Diagnosis Admitting Diagnosis Admitting Diagnosis: CHF exacerbation DS: Discharge Diagnosis Discharge Diagnosis (1) Hypoxia: Code(s): R09.02 - Hypoxemia Status: Acute Assessment and Plan: * The patient has dyspnea on exertion with hypoxia on exertion. * Patient also has a history of asthma, CHF, and COPD * Continue albuterol, bumetanide 1mg PO daily for fluid * SPO2 spot check * Keep saturation above 92% * Supplemental oxygen to maintain saturation (2) MARRERO (dyspnea on exertion): Code(s): R06.00 - Dyspnea, unspecified Status: Acute Assessment and Plan: * See above (3) CHF (congestive heart failure): Qualifiers: Heart failure type: diastolic Heart failure chronicity: chronic Qualified Code(s): I50.32 - Chronic diastolic (congestive) heart failure Code(s): I50.9 - Heart failure, unspecified Status: Acute Assessment and Plan: * BNP 2770 * Carvedilol 6.25 PO Q12hr and valsartan 160mg PO Q12hr * Continue home bumex 1mg PO daily * Strict I&Os * One time 40mg IV lasix * may consider one more dose to see if it helps * Monitor and trend blood pressure (4) Diabetes mellitus: Qualifiers: Diabetes mellitus type: type 2 Diabetes mellitus halfway insulin use: without halfway use Diabetes mellitus complication status: without complication Qualified Code(s): E11.9 - Type 2 diabetes mellitus without complications Code(s): E11.9 - Type 2 diabetes mellitus without complications Status: Acute Assessment and Plan: * Glucose 100 today * Sliding scale is ordered * ACHS * Hold home metformin * Adjust medications as needed (5) Pruritic dermatitis: Code(s): L29.9 - Pruritus, unspecified Status: Acute Assessment and Plan: * Continue Triamcinolone acetonide topical Q12hr (6) Hypertension: Qualifiers: Hypertension type: essential hypertension Qualified Code(s): I10 - Essential (primary) hypertension Code(s): I10 - Essential (primary) hypertension Status: Chronic Assessment and Plan: * Current blood pressure is 116/86 * Trend blood pressure * Continue home Carvedilol 6.25 PO Q12hr, and valsartan 160mg PO BID * Adjust medications as needed DS: Summary Hospital Course Hospital Course: 85-year-old female with past medical history of diastolic dysfunction, dual-chamber pacemaker, hypertension, atrial fibrillation, and recent cardiac window due to large pericardial effusion who presented to the ER with dyspnea on exertion for 2 days. Patient did have a BNP of 2770 and was treated with IV lasix which did help her. She has also revceived 40mg of PO lasix this am as well. I think that this patient might have some tape allergy that is causing her to have a skin reaction. She has been complaining of itching where there has been tape placed. I did talk to her daughter about diuretic use and the need to monitor her fluids as this will contribute to her having this problem again. I also talked to the patient about watching her fluid intake and ensuring that she is take her medications as prescribed. Status at Discharge Functional status at discharge: independent ambulation Overall status at discharge: patient is back to baseline Time Spent with Patient Time attestation: Total time spent providing and/or coordinating discharge services: Time spent: Greater than 30 minutes
--- NOTE | 2020-09-26 10:19 | PM.DS ---
DS: Admitting Diagnosis Admitting Diagnosis Admitting Diagnosis: CHF exacerbation DS: Discharge Diagnosis Discharge Diagnosis (1) Hypoxia: Code(s): R09.02 - Hypoxemia Status: Acute Assessment and Plan: The patient has dyspnea on exertion with hypoxia on exertion. Patient also has a history of asthma, CHF, and COPD Continue albuterol, bumetanide 1mg PO daily for fluid SPO2 spot check Keep saturation above 92% Supplemental oxygen to maintain saturation (2) MARRERO (dyspnea on exertion): Code(s): R06.00 - Dyspnea, unspecified Status: Acute Assessment and Plan: See above (3) CHF (congestive heart failure): Qualifiers: Heart failure type: diastolic Heart failure chronicity: chronic Qualified Code(s): I50.32 - Chronic diastolic (congestive) heart failure Code(s): I50.9 - Heart failure, unspecified Status: Acute Assessment and Plan: BNP 2770 Carvedilol 6.25 PO Q12hr and valsartan 160mg PO Q12hr Continue home bumex 1mg PO daily Strict I&Os One time 40mg IV lasix may consider one more dose to see if it helps Monitor and trend blood pressure (4) Diabetes mellitus: Qualifiers: Diabetes mellitus type: type 2 Diabetes mellitus buttermaker insulin use: without buttermaker use Diabetes mellitus complication status: without complication Qualified Code(s): E11.9 - Type 2 diabetes mellitus without complications Code(s): E11.9 - Type 2 diabetes mellitus without complications Status: Acute Assessment and Plan: Glucose 100 today Sliding scale is ordered ACHS Hold home metformin Adjust medications as needed (5) Pruritic dermatitis: Code(s): L29.9 - Pruritus, unspecified Status: Acute Assessment and Plan: Continue Triamcinolone acetonide topical Q12hr (6) Hypertension: Qualifiers: Hypertension type: essential hypertension Qualified Code(s): I10 - Essential (primary) hypertension Code(s): I10 - Essential (primary) hypertension Status: Chronic Assessment and Plan: Current blood pressure is 116/86 Trend blood pressure Continue home Carvedilol 6.25 PO Q12hr, and valsartan 160mg PO BID Adjust medications as needed DS: Summary Hospital Course Hospital Course: 85-year-old female with past medical history of diastolic dysfunction, dual-chamber pacemaker, hypertension, atrial fibrillation, and recent cardiac window due to large pericardial effusion who presented to the ER with dyspnea on exertion for 2 days. Patient did have a BNP of 2770 and was treated with IV lasix which did help her. She has also revceived 40mg of PO lasix this am as well. I think that this patient might have some tape allergy that is causing her to have a skin reaction. She has been complaining of itching where there has been tape placed. I did talk to her daughter about diuretic use and the need to monitor her fluids as this will contribute to her having this problem again. I also talked to the patient about watching her fluid intake and ensuring that she is take her medications as prescribed. Status at Discharge Functional status at discharge: independent ambulation Overall status at discharge: patient is back to baseline Time Spent with Patient Time attestation: Total time spent providing and/or coordinating discharge services: Time spent: Greater than 30 minutes Exam Const: General: cooperative, healthy appearing, no acute distress, well developed, alert and awake Nutritional Appearance: well nourished Orientation/consciousness: patient oriented x3 Limitations: no limitations HENMT: Head: normal to inspection Ears: hearing grossly normal bilaterally General nose exam: Normal external nose present Mouth: Yes Normal oral and palatal mucosa present, Yes lip normal and Yes tongue normal Teeth and gingiva: abnormal tooth and associated gi
[2020-09-26 11:43] LABS: Glucose Point of Care 92 mg/dl (65-105)
== END 2020-09-26 12:55 | disposition home or self-care (01) ==
LOC: ANHED 17:22 → ANH3MEDSUR 18:35
PROVIDERS: Emergency Medicine; Nurse Practitioner; Admitting Provider Family Medicine; Emergency Provider General Practice; PCP Internal Medicine; Visit Provider Family Medicine
DX: R06.00 Dyspnea, unspecified (principal); R09.02 Hypoxemia; I11.0 Hypertensive heart disease with heart failure; I50.32 Chronic diastolic (congestive) heart failure; I44.7 Left bundle-branch block, unspecified; L29.9 Pruritus, unspecified; I48.0 Paroxysmal atrial fibrillation; I08.1 Rheumatic disorders of both mitral and tricuspid valves; I42.8 Other cardiomyopathies; J44.9 Chronic obstructive pulmonary disease, unspecified; E11.9 Type 2 diabetes mellitus without complications; E66.9 Obesity, unspecified; E78.5 Hyperlipidemia, unspecified; H40.9 Unspecified glaucoma; M85.851 Other specified disorders of bone density and structure, right thigh; M19.90 Unspecified osteoarthritis, unspecified site; M85.852 Other specified disorders of bone density and structure, left thigh; M62.81 Muscle weakness (generalized); B91 Sequelae of poliomyelitis; R00.0 Tachycardia, unspecified; Z20.822 Contact with and (suspected) exposure to COVID-19; Z95.0 Presence of cardiac pacemaker; Z68.30 Body mass index [BMI] 30.0-30.9, adult; Z86.73 Personal history of transient ischemic attack (TIA), and cerebral infarction without residual deficits
CPT/HCPCS: 36415; 36600; 71046; 80048; 80053; 82375; 82805; 82948; 83050; 83735; 83880; 84484; 85025; 85027; 85380; 85610; 85730; 93005; 94618; 94640; 96374; 99285; A9270; C9803; G0378; J1940; U0003; U0005

== ENCOUNTER → 2020-12-24 00:20 | Outpatient (CLI) | payer MEDICARE, SELFPAY ==
[2020-12-24 19:52] LABS: SARS-CoV-2 RNA PCR Negative
== END ==
PROVIDERS: PCP Internal Medicine; Visit Provider Internal Medicine
DX: Z20.822 Contact with and (suspected) exposure to COVID-19 (principal)
CPT/HCPCS: C9803; U0003; U0005

== ENCOUNTER → 2020-12-29 15:01 | Outpatient (CLI) | payer MEDICARE, SELFPAY ==
--- NOTE | ~2020-12-29 | XR_ITS ---
XR chest 2V 12/29/2020 15:16 Indication: Shortness of breath Procedure: 2 view chest Comparison: Comparison to multiple prior studies sequentially, with oldest reviewed study dated 07/2018. Findings: Borderline heart size. Pacemaker leads are stable. There is bibasilar atelectasis/scarring. No acute focal pneumonia, edema or effusion. The lungs are hyperinflated which is consistent with, b ut not diagnostic of chronic obstructive pulmonary disease. 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 Impression: 1: No acute cardiopulmonary disease. 2: Chronic bibasilar atelectasis/scarring. Reviewed, dictated and finalized at location A. Impression: 1: No acute cardiopulmonary disease. 2: Chronic bibasilar atelectasis/scarring.
== END ==
PROVIDERS: PCP Internal Medicine; Visit Provider Internal Medicine
DX: R06.02 Shortness of breath (principal); M48.14 Ankylosing hyperostosis [Forestier], thoracic region
CPT/HCPCS: 71046

== ENCOUNTER 2021-01-14 09:36 | Outpatient (CLI) | payer MEDICARE, SELFPAY ==
--- NOTE | 2021-01-14 09:44 | ECHO_ITS ---
Patient Info Name: Marcia Barroso Age: 85 years : 1935 Gender: Female Ht: 62 in Wt: 175 lbs BSA: 1.90 m2 HR: 76 bpm BP: 131 / 83 mmHg Technical Quality: Fair Exam Date: 01/14/2021 9:47 AM Exam Location: [facility] Patient Status: Outpatient Admit Date: 01/14/2021 Staff Ordering Physician: Osmel Vogt DO Notary Public: Ailyn Cristina RDCS Attending Provider: Osmel Vogt DO Referring Physician: Sin MEJIA; Exam Type: CA echo doppler color flow Study Info Indications I31.3 - Pericardial effusion (noninflammatory) Complete two-dimensional, color flow and Doppler transthoracic echocardiogram is performed. Summary 1. Complete two-dimensional, color flow and Doppler transthoracic echocardiogram is performed. 2. Left ventricular chamber dimension is normal. 3. Left ventricular systolic function is normal, estimated at 60-65%. 4. The left ventricular diastolic function is abnormal. 5. E/e' 10 is mildly elevated. 6. Linear artifact in right ventricle suggestive of catheter(s), pacemaker lead(s), or ICD lead(s). 7. Left atrial chamber dimension is mildly enlarged. 8. Linear artifact in the right atrium suggestive of catheter(s), pacemaker lead(s), or ICD lead(s). 9. There is mild aortic valve sclerosis. 10. The mitral valve has mildly calcified annulus. 11. There is mild mitral valve regurgitation. 12. There is mild tricuspid valve regurgitation. 13. No pulmonary hypertension, estimated pulmonary arterial systolic pressure is 32 mmHg. 14. There is moderate pericardial effusion posteriorly up to 1.8 cm, and otherwise trivial amounts elsewhere. Left Ventricle E/e' 10 is mildly elevated. Left ventricular chamber dimension is normal. Left ventricular systolic function is normal, estimated at 60-65%. The left ventricular diastolic function is abnormal. Right Ventricle Linear artifact in right ventricle suggestive of catheter(s), pacemaker lead(s), or ICD lead(s). Right ventricular chamber dimension is normal. Right ventricular systolic function is normal. Left Atria Left atrial chamber dimension is mildly enlarged. Right Atria Linear artifact in the right atrium suggestive of catheter(s), pacemaker lead(s), or ICD lead(s). Right atrial chamber dimension is normal. Aortic Valve The aortic valve is trileaflet. There is mild aortic valve sclerosis. There is no aortic valve stenosis. There is no aortic valve regurgitation. Pulmonic Valve There is no pulmonic regurgitation. Mitral Valve The mitral valve has mildly calcified annulus. There is no mitral valve stenosis. There is mild mitral valve regurgitation. Tricuspid Valve There is mild tricuspid valve regurgitation. No pulmonary hypertension, estimated pulmonary arterial systolic pressure is 32 mmHg. Pericardium/Pleural There is moderate pericardial effusion posteriorly up to 1.8 cm, and otherwise trivial amounts elsewhere. Inferior Vena Cava Normal inferior vena cava with >50% collapse upon inspiration consistent with normal right atrial pressure, 5 mmHg. Aorta The aortic root size at the sinus of Valsalva is normal. Left Ventricular Outflow Tract Name Value Normal LVOT 2D LVOT Diameter 2.0 cm
== END 2021-01-14 09:37 | disposition home or self-care (01) ==
PROVIDERS: PCP Internal Medicine; Visit Provider Internal Medicine Cardiovascular Disease
DX: I31.3 Pericardial effusion (noninflammatory) (principal); I34.0 Nonrheumatic mitral (valve) insufficiency; I36.1 Nonrheumatic tricuspid (valve) insufficiency
CPT/HCPCS: 93306

== ENCOUNTER 2021-05-19 14:08 | Outpatient (CLI) | payer MEDICARE, SELFPAY ==
--- NOTE | ~2021-05-19 | XR_ITS ---
EXAMINATION: XR shoulder LT min 2V DATE: 05/19/2021 14:43 INDICATION: Chronic posterior left shoulder pain. TECHNIQUE: 4 views of left shoulder were obtained. COMPARISON: None. FINDINGS: There is superior subluxation of humeral head with narrowing of the subacromial space and r emodeling of the undersurface of the acromion, consistent with chronic rotator cuff tear with cuff ar thropathy. No fracture. There is severe osteoarthritis of glenohumeral joint and acromioclavicular ronni int. A left chest pacer is noted. IMPRESSION: 1. Severe polyarticular osteoarthritis. 2. Chronic left rotator cuff tear with cuff arthropathy. Reviewed, dictated and finalized at location E. O/PROSTHETIC AIDE
[2021-05-19 18:57] LABS: Basophils Percent Auto 0.6 % (0.2-1.2); Eosinophils Absolute Auto 0.1 K/mm3 (0-0.3); Eosinophils Percent Auto 1.5 % (0-4.4); Hematocrit 40.5 % (37.0-47.0); Hemoglobin 12.6 g/dL (12.0-15.0); Immature Granulocyte Absolute 0.01 K/mm3 (0.00-0.031); Immature Granulocyte Percent A 0.2 % (0-0.5); Lymphocytes Absolute Auto 1.32 K/mm3 (0.9-3.2); Lymphocytes Percent Auto 25.3 % (18.3-44.2); Mean Corpuscular HGB Conc 31.1 g/dl (32-36); Mean Corpuscular Hemoglobin 27.3 pg (26-34); Mean Corpuscular Volume 87.9 fl (80-100); Monocytes Absolute Auto 0.4 K/mm3 (0.1-0.6); Monocytes Percent Auto 7.9 % (2.6-8.5); Neutrophils Absolute Auto 3.4 K/mm3 (1.3-6.7); Neutrophils Percent Auto 64.5 % (45.5-73.1); Platelet Count Result 185 k/mm3 (150-375); Red Blood Count 4.61 M/mm3 (4.2-5.4); Red Cell Distribution Width 13.3 % (11.5-14.5); White Blood Count 5.2 K/mm3 (4.5-10.0)
[2021-05-19 19:30] LABS: Hemoglobin A1C 5.9 % (<5.7)
[2021-05-19 19:50] LABS: Microalbumin Urine Random 14.8 mg/L (0-16.7)
[2021-05-20 20:19] LABS: Alanine Aminotransferase 18 U/L (4-35); Albumin Level 4.1 g/dL (3.5-5.1); Alkaline Phosphatase 73 U/L (38-126); Anion Gap 6 mmol/L (8-16); Aspartate Amino Transferase 32 U/L (14-36); Bilirubin,Total 1.1 mg/dL (0.2-1.3); Blood Urea Nitrogen 21 mg/dL (7-17); Calcium 9.6 mg/dL (8.4-10.2); Carbon Dioxide 29 mmol/L (22-30); Chloride 103 mmol/L (98-107); Cholesterol 118 mg/dL (0-200); Estimated Glomerular Filt Rate 60; Glucose 91 mg/dL (65-110); HDL Direct 68 mg/dL; Potassium 4.2 mmol/L (3.4-5.0); Sodium 138 mmol/L (137-145); Triglycerides 93 mg/dL (<150)
[2021-05-20 20:30] LABS: LDL Cholesterol Direct 36 mg/dL
== END 2021-05-19 14:09 | disposition home or self-care (01) ==
PROVIDERS: PCP Family Medicine; Visit Provider Family Medicine
DX: M25.512 Pain in left shoulder (principal); E11.65 Type 2 diabetes mellitus with hyperglycemia; I50.32 Chronic diastolic (congestive) heart failure; M85.80 Other specified disorders of bone density and structure, unspecified site; R55 Syncope and collapse; K21.9 Gastro-esophageal reflux disease without esophagitis; E11.9 Type 2 diabetes mellitus without complications; M19.012 Primary osteoarthritis, left shoulder; M75.102 Unspecified rotator cuff tear or rupture of left shoulder, not specified as traumatic
CPT/HCPCS: 36415; 73030; 80053; 80061; 82043; 82607; 83036; 85025

== ENCOUNTER 2021-06-09 09:05 | Outpatient (CLI) | payer MEDICARE, SELFPAY ==
--- NOTE | 2021-06-09 14:34 | WPDPFTINT ---
PFT Procedure Performed PFT Procedure Performed Spirometry with Pre/Post Bronchodilator Plethysmography (Lung Vol) Diffusing Cap (DLCO) Flow Vol Loop PFT Interpretation Lung volumes were measured with the body plethysmography method. Lung volumes are unremarkable. Spirometry showed normal expiratory flow rates and a normal FEV1 to FVC ratio of 69%. Following administration of a bronchodilator there was no significant increase in expiratory flow rates. Lung diffusion capacity is mildly reduced at 73% predicted. The flow volume loop is unremarkable. Impression: Spirometry, lung volumes within normal range. Mild reduction in lung diffusion capacity.
--- NOTE | 2021-06-09 14:38 | WPDSIXMINUTE ---
Six Minute Walk Procedure Procedure Performed Pulmonary Stress Test (6 min walk) Six Minute Walk This 6 minute walk test was carried out with the patient breathing ambient air. The pre walk oxyhemoglobin saturation was 95%. The patient walked 274 m with no stops during the walk. The oxyhemoglobin saturation during the walk remained over 92%. Impression: No evidence of oxyhemoglobin desaturation on this testing.
== END 2021-06-09 09:06 | disposition home or self-care (01) ==
PROVIDERS: PCP Family Medicine; Visit Provider Internal Medicine Pulmonary Disease
DX: J45.909 Unspecified asthma, uncomplicated (principal)
CPT/HCPCS: 94060; 94618; 94726; 94729

== ENCOUNTER 2021-06-11 08:57 | Outpatient (CLI) | payer MEDICARE, SELFPAY | END 2021-06-11 08:58 | disposition home or self-care (01) | LOC: ANHBWCAUD 08:58 | PROVIDERS: PCP Family Medicine; Visit Provider Family Medicine | DX: H90.3 Sensorineural hearing loss, bilateral (principal) | CPT/HCPCS: 92557; 92567 ==

== ENCOUNTER 2021-07-28 12:34 | Outpatient (CLI) | payer MEDICARE, SELFPAY ==
--- NOTE | 2021-07-28 12:51 | ECHO_ITS ---
Patient Info Name: Marcia Barroso Age: 86 years : 1935 Gender: Female Ht: 62 in Wt: 175 lbs BSA: 1.90 m2 HR: 78 bpm BP: 155 / 88 mmHg Heart Rhythm: Sinus Rhythm Technical Quality: Fair Exam Date: 07/28/2021 12:58 PM Exam Location: [facility] Patient Status: Outpatient Admit Date: 07/28/2021 Staff Ordering Physician: Osmel Vogt DO Grinder Set Up Operator Centerless: Juana Barahona RDCS Attending Provider: Osmel Vogt DO Referring Physician: Sin MEJIA; Exam Type: CA echo doppler color flow Study Info Indications - Perricadial effusion (noninflammatory) Complete two-dimensional, color flow and Doppler transthoracic echocardiogram is performed. Summary 1. Complete two-dimensional, color flow and Doppler transthoracic echocardiogram is performed. 2. Left ventricular chamber dimension is normal. 3. Left ventricular systolic function is normal, estimated at 55-60%. 4. The left ventricular diastolic function is grade III diastolic dysfunction. 5. E/e' 12 is mildly elevated. 6. Linear artifact in right ventricle suggestive of catheter(s), pacemaker lead(s), or ICD lead(s). 7. Left atrial chamber dimension is moderately enlarged. 8. Right atrial chamber dimension is moderately enlarged. 9. Linear artifact in the right atrium suggestive of catheter(s), pacemaker lead(s), or ICD lead(s). 10. The mitral valve has mildly calcified annulus. 11. There is mild mitral valve regurgitation. 12. There is mild to moderate tricuspid valve regurgitation. 13. Mild pulmonary hypertension, estimated pulmonary arterial systolic pressure is 41 mmHg. 14. There is small loculated posterior pericardial effusion measuring up to 1.3 cm. Left Ventricle E/e' 12 is mildly elevated. Left ventricular chamber dimension is normal. Left ventricular systolic function is normal, estimated at 55-60%. The left ventricular diastolic function is grade III diastolic dysfunction. Right Ventricle Linear artifact in right ventricle suggestive of catheter(s), pacemaker lead(s), or ICD lead(s). Right ventricular chamber dimension is normal. Right ventricular systolic function is normal. Left Atria Left atrial chamber dimension is moderately enlarged. Right Atria Linear artifact in the right atrium suggestive of catheter(s), pacemaker lead(s), or ICD lead(s). Right atrial chamber dimension is moderately enlarged. Aortic Valve The aortic valve is trileaflet. There is no aortic valve stenosis. There is no aortic valve regurgitation. Pulmonic Valve There is no pulmonic regurgitation. Mitral Valve The mitral valve has mildly calcified annulus. There is no mitral valve stenosis. There is mild mitral valve regurgitation. Tricuspid Valve There is mild to moderate tricuspid valve regurgitation. Mild pulmonary hypertension, estimated pulmonary arterial systolic pressure is 41 mmHg. Pericardium/Pleural There is small loculated posterior pericardial effusion measuring up to 1.3 cm. Inferior Vena Cava Normal inferior vena cava with >50% collapse upon inspiration consistent with normal right atrial pressure, 5 mmHg. Aorta The aortic root size at the sinus of Valsalva is normal. Left Ventricular Outflow Tract Name Value Normal LVOT 2D
== END 2021-07-28 12:35 | disposition home or self-care (01) ==
PROVIDERS: PCP Family Medicine; Visit Provider Internal Medicine Cardiovascular Disease
DX: I31.3 Pericardial effusion (noninflammatory) (principal); I27.20 Pulmonary hypertension, unspecified; I08.1 Rheumatic disorders of both mitral and tricuspid valves
CPT/HCPCS: 93306

== ENCOUNTER 2021-08-19 12:17 | Outpatient (CLI) | payer MEDICARE, SELFPAY ==
[2021-08-19 19:07] LABS: Hematocrit 40.8 % (37.0-47.0); Hemoglobin 12.6 g/dL (12.0-15.0); Mean Corpuscular HGB Conc 30.9 g/dl (32-36); Mean Corpuscular Hemoglobin 27.8 pg (26-34); Mean Corpuscular Volume 89.9 fl (80-100); Mean Platelet Volume 12.8 fl (7.4-10.4); Platelet Count Result 178 k/mm3 (150-375); Red Blood Count 4.54 M/mm3 (4.2-5.4); Red Cell Distribution Width 13.3 % (11.5-14.5); White Blood Count 4.6 K/mm3 (4.5-10.0)
== END 2021-08-19 12:18 | disposition home or self-care (01) ==
PROVIDERS: PCP Family Medicine; Visit Provider Family Medicine
DX: D64.9 Anemia, unspecified (principal); R42 Dizziness and giddiness
CPT/HCPCS: 36415; 85027